=== PATIENT | male | born 1970 | race Caucasian/White ===

== ENCOUNTER 2020-06-13 11:50 | Inpatient (IN) | payer MEDICARE, SELFPAY ==
--- NOTE | 2020-06-13 | ECG_ITS ---
Test Reason : FALL Blood Pressure : / mmHG Vent. Rate : 096 BPM Atrial Rate : 096 BPM P-R Int : 148 ms QRS Dur : 090 ms QT Int : 368 ms P-R-T Axes : 038 -19 017 degrees QTc Int : 464 ms Normal sinus rhythm Normal ECG When compared with ECG of 13-JUN-2020 13:20, No significant change was found Referred By: Chelsea Quispe Electronically Signed By:MANDY HARMON
[2020-06-13 12:11] VITALS: BP 123/72; PULSE 92; RESP 18; TEMP 36.5; O2SAT 96; BMI 29.6
--- NOTE | 2020-06-13 12:30 | ECG_ITS ---
Test Reason : FALL Blood Pressure : / mmHG Vent. Rate : 090 BPM Atrial Rate : 090 BPM P-R Int : 146 ms QRS Dur : 090 ms QT Int : 386 ms P-R-T Axes : 047 -21 001 degrees QTc Int : 472 ms Artifact in tracing Normal sinus rhythm Cannot exclude old inferior infarct, but could be normal variant. Otherwise normal EKG When compared with ECG of 21-JAN-2020 15:30, No significant changes seen Referred By: Chelsea Quispe Electronically Signed By:MANDY HARMON
--- NOTE | 2020-06-13 12:30 | XR_ITS ---
EXAMINATION: XR CHEST CLINICAL INFORMATION: Multiple falls. COMPARISON: None TECHNIQUE: 2 views of the chest were obtained. FINDINGS: No significant abnormality is noted involving the heart, lungs, mediastinum, bony thorax or soft tissues. XR/XR chest 2V IMPRESSION: Unremarkable chest examination.
--- NOTE | 2020-06-13 12:30 | CT_ITS ---
EXAMINATION: CT HEAD WITHOUT CONTRAST CLINICAL INFORMATION: Frequent falls, head injury. COMPARISON: CT brain noncontrast 01/21/2020 TECHNIQUE: Contiguous axial imaging was performed from the skull base to vertex without intravenous administration of contrast. Additional 2-D coronal and sagittal reformatted images are generated on the CT workstation and uploaded to PACS. This CT examination was performed using dose optimization techniques as appropriate, variously including the following: *Automated exposure control *Adjustment of mA and/or kV according to patient size (this includes techniques or standardized protocols for targeted exams where dose is matched to indication/reason for exam; i.e. extremities or head) *Use of iterative reconstruction technique DLP: 621 mGy-cm FINDINGS: There is no intracranial hemorrhage, hematoma, or extra-axial fluid collection. The ventricles are similar to prior study. No interval hydrocephalus. Again, there is some scattered periventricular white matter gliosis greatest adjacent to frontal horns similar to prior study. There is of the cortical sulci and fissures. There is no visible acute territorial infarct or mass lesion. The calvarium appears intact. There is no pneumocephalus or orbital emphysema. The visualized sinuses and middle ears and mastoid air cells show no significant mucosal thickening. There are no air-fluid levels. CT/CT head/brain wo con IMPRESSION: No acute intracranial abnormality.
--- NOTE | 2020-06-13 12:35 | ED.GENADULT ---
HPI - General Adult General Chief complaint: Fall <DOMINGO Gay Last Filed: 06/13/20 16:34> Stated complaint: INCREASED WEAKNESS,MS EXACERBATION <DOMINGO Gay Last Filed: 06/13/20 16:34> Time Seen by Provider: 06/13/20 12:11 <DOMINGO Gay Last Filed: 06/13/20 16:34> Source: patient and EMS <DOMINGO Gay Last Filed: 06/13/20 16:34> Mode of arrival: EMS <DOMINGO Gay Last Filed: 06/13/20 16:34> Limitations: no limitations <DOMINGO Gay Last Filed: 06/13/20 16:34> History of Present Illness HPI narrative: 49yoM c PMHx of Multiple sclerosis, seizure d/o, alcohol dependent, depression and anxiety presenting to the ED via EMS due to MS flare up due to multiple falls c generalized weakness that started yesterday morning when he woke up he fell off his bed onto his left side hit his head [id number] no LOC. Denies being on any blood thinners. Denies any headaches, dizziness, changes in vision, nausea/vomiting, sore throat, runny nose, cough, shortness of breath, chest pain, shortness of breath, dyspnea on exertion, orthopnea, palpitations, focal weakness, paresthesias, abdominal pain, back pain, dysuria, diarrhea or constipation. Denies any other symptoms complaints or concerns at this time. Interested in short-term rehab. <DOMINGO Gay Last Filed: 06/13/20 16:34> Related Data Home medications: Home Medications Medication Instructions Recorded Confirmed amitriptyline 150 mg PO BEDTIME 06/13/20 06/13/20 ergocalciferol (vitamin D2) 1,250 mcg PO QWEEK 06/13/20 06/13/20 [Vitamin D2] primidone 50 mg PO BID 06/13/20 06/13/20 <DOMINGO Gay Last Filed: 06/13/20 16:34> Allergies/adverse reactions: Allergies Allergy/AdvReac Type Severity Reaction Status Date / Time clarithromycin [From BIAXIN] Allergy Unknown UNKNOWN Verified 06/13/20 19:32 glatiramer (copolymer 1) Allergy Unknown UNKNOWN Verified 06/13/20 19:32 [From COPAXONE] interferon beta-1b Allergy Unknown UNKNOWN Verified 06/13/20 19:32 [From BETASERON] omeprazole [From PRILOSEC] Allergy Unknown UNKNOWN Verified 06/13/20 19:32 <DOMINGO Gay - Last Filed: 06/13/20 16:34> Review of Systems Review of Systems: Constitutional : + multiple falls, No Fever, No Chills, No Night Sweats, No Fatigue, No Malaise ENT/Mouth : No Ear Pain, No Nasal Congestion, No Sinus Pain, No sore throat, No Rhinorrhea Eyes: No Eye Pain, No Swelling, No Redness, No Foreign Body, No Discharge, No Vision Changes Cardiovascular : No Chest Pain, No SOB, No Dyspnea on Exertion, No Orthopnea, No Palpitations Respiratory : No Cough, No Sputum, No Wheezing, No Dyspnea Gastrointestinal : No Nausea, No Vomiting, No Diarrhea, No Constipation, No abdominal Pain, No Hematochezia, No Melena Genitourinary : No Dysuria, No Urinary Frequency, No Urinary Incontinence, No Urgency, No Flank Pain Musculoskeletal : No joint pain, No Myalgias Skin : No lacerations Neuro : + Generalized weakness, + Head injury, No Numbness, No Paresthesias, No Loss of Consciousness, No Dizziness, No Headache <DOMINGO Gay - Last Filed: 06/13/20 16:34> Yes all other systems are reviewed and are negative <DOMINGO Gay - Last Filed: 06/13/20 16:34> [facility] Past Medical History Attestation statement: The following information was validated with the patient. <DOMINGO Gay - Last Filed: 06/13/20 16:34> Medical History: Medical History Alcohol dependence Multiple sclerosis <DOMINGO Gay - Last Filed: 06/13/20 16:34> Social History Social History: Social History Household Members: None Housing: Apartment Do you presently have visiting nurse or other home services: No Smoking Status: Former smoker Tobacco Type: Cigarette Cigarettes Per Day: 20 Smoked in Last 30 Days: Yes Patient Interested in Nicotine Replacement: No Patient Given Instructions on How to Stop Smoking: No Second Hand Smoke Exposure: No Use of substances other than those prescribed or required for medical reasons: No Currently Displaying Signs/Symptoms of Drug Intoxication Withdrawal: No Any prior treatment program specific to substance use: No Have you been hit, kicked, punched, or otherwise hurt by someone within the past year? If so, by whom?: No Do you feel safe in your current relationship?: No Is there a partner from a previous relationship who is making you feel unsafe now?: No Are you made to feel afraid or neglected: No Advance Directives: No Advance Directives Information Provided: Yes Do you have thoughts of harming others: None Do you have a plan to hurt others: No Plan Recently lost weight without trying: No service: No Current occupational status: disabled <DOMINGO Gay - Last Filed: 06/13/20 16:34> Physical Exam Vital Signs: Vital Signs: Last Vital Signs Temp 97.0 F 06/19/20 12:00 Pulse 80 06/19/20 12:00 Resp 16 06/19/20 12:00 BP 121/74 06/19/20 12:00 Pulse Ox 96 06/19/20 12:00 Body Mass Index 29.6 Vital signs have been reviewed as normal and appeared to be correct. Blood pressure normal. Heart rate normal. Respiration rate normal. Temperature normal. Oxygen saturation normal. <DOMINGO Gay - Last Filed: 06/13/20 16:34> Vital Signs: Last Vital Signs Temp 97.0 F 06/19/20 12:00 Pulse 80 06/19/20 12:00 Resp 16 06/19/20 12:00 BP 121/74 06/19/20 12:00 Pulse Ox 96 06/19/20 12:00 Body Mass Index 29.6 <Geovany Mathur MD - Last Filed: 06/21/20 08:39> Appearance: Alert. Oriented X3. Poor grooming/hygiene. No acute distress. Head: Normal external exam. Normocephalic. Atraumatic. Able to rotate head bilaterally. Eyes: PERRLA. EOMI. No nystagmus noted. Conjunctiva and sclera normal. Eyelids normal. Corneal reflex normal. ENT: EAC normal. TM's Normal. No septal hematoma noted. No hemotympanum noted. Hearing normal. Pharynx normal. Uvula midline. tongue midline. Moist mucous membranes. No trismus noted. No drooling noted. No muffled voice noted. Neck: Normal inspection. Neck supple. FROM. No adenopathy. Thyroid Normal. No meningeal signs. No neck mass noted. CVS: Normal heart rate and rhythm. Heart sound normal. No murmurs noted. Pulses normal throughout. Respiratory: No respiratory distress. Painless inspiration. Breath sounds normal. No wheezes/rales/rhonchi noted. Chest nontender. No accessory muscle usage noted or decreased air movement noted. Abdomen: Soft and nontender. Bowel sounds normal in all 4 quadrants. No distention noted. No organomegaly noted. No visible injury noted. Back: No CVA tenderness. Full range of motion noted. Skin: Skin warm and dry. Normal skin color. Normal skin turgor. No rashes/lesions/lacerations noted. Extremities: No lower extremity edema. No calf tenderness noted. Extremities exhibit normal range of motion. Extremities nontender. Able to shrug shoulders bilaterally and keep up against resistance. Neuro: Oriented X 3. No motor deficit. No sensory deficit. Reflexes normal. Moving all extremities. No focal motor deficits. Cranial nerves II-XI intact bilaterally. Facial strength normal. Normal cognition. Speech normal. Gait normal. Strength 5/5 throughout. No pronator drift. No tremor noted. No fasciculations noted. Muscle tone normal throughout. No asterixis noted. [id number] test normal. Heel to connor test normal. No rigidity noted. NIHSS score 0. <DOMINGO Gay - Last Filed: 06/13/20 16:34> Course Course Course Narrative: 12:30 - 49yoM c PMHx of Multiple sclerosis, seizure d/o, alcohol dependent, depression and anxiety presenting to the ED via EMS due to MS flare up due to multiple falls c generalized weakness c head injury no LOC that started yesterday morning interested in Short term rehab. Reports that he has not taking his Tysabri x 3 months - Plan: Labs, CXR, CT scan of brain/cervical spine, EKG, Drug urine screen place a case management consult, PT consult, consult with Dr. Farias patient's neurologist and re-evaluate. <DOMINGO Gay - Last Filed: 06/13/20 16:34> I have discussed the case and management with the OFELIA <Geovany Mathur MD - Last Filed: 06/21/20 08:39> Reevaluation(s) Reevaluation #1: - All labs WNL. EKG NSr no acute ischemic changes noted. CT scan of brain/cervical spine WNL no acute processes noted. CXR WNL. COVID/RSV/FLU neg - I consulted with Dr. Farias who recommended placing the patient on a short-term course of methylprednisolone of 1000 mg daily for 5 days and admit the patient. He also recommended a non emergent MRI with and without contrast to rule out PML. Will plan to admit at this time for multiple sclerosis flare for IV steroids. Patient understands agrees the plan. <DOMINGO Gay - Last Filed: 06/13/20 16:34> Time: 14:27 <DOMINGO Gay - Last Filed: 06/13/20 16:34> Medical Decision Making Lab Data Result diagrams: : 06/14/20 05:53 06/14/20 05:53 <DOMINGO Gay - Last Filed: 06/13/20 16:34> Labs: Lab Results 06/13/20 06/13/20 06/13/20 Range/Units 13:06 13:06 13:06 WBC 8.1 (4.8-10.8) X10*3/uL RBC 5.87 H (4.60-5.80) X10*6/uL Hgb 15.8 (14.0-18.0) g/dl Hct 48.1 (42-52) % MCV 81.9 (80-98) fL MCH 26.9 L (27.0-33.0) pg MCHC 32.8 (31.0-36.0) g/dl RDW 15.2 (11.0-16.0) % Plt Count 278 (160-400) X10*3/uL MPV 10.5 (9.4-12.4) fL Immature Gran % (Auto) 0.2 (0.0-0.4) % Neut % (Auto) 69.5 (45-73) % Lymph % (Auto) 24.1 (20-40) % [place] % (Auto) 5.7 (2-11) % Eos % (Auto) 0.0 (0-4) % Baso % (Auto) 0.5 (0-2) % Lymph # (Auto) 2.0 (1.2-4.9) X10*3/uL [place] # (Auto) 0.5 (0.1-1.2) X10*3/uL Eos # (Auto) 0.0 (0.0-0.4) X10*3/uL Baso # (Auto) 0.0 (0.0-0.2) X10*3/uL Abs Immat Gran (auto) 0.02 (0.00-0.03) X10*3/uL Absolute Neuts (auto) 5.6 (2.0-8.3) X10*3/uL Absolute Nucleated RBC 0.000 (0.0-0.012) X10*3/uL Nucleated RBC % (auto) 0.0 (0.0-0.2) /100WBC PT 11.8 (10.8-13.0) SEC INR 1.0 (0.9-1.1) Sodium 139 (135-145) mmol/L Potassium 4.4 (3.3-5.1) mmol/l Chloride 100 (96-108) mmol/L Carbon Dioxide 29 (22-29) mmol/L Anion Gap 14 (12-20) BUN 11 (9-16) mg/dL Creatinine 0.96 (0.5-1.4) mg/dL Estim Creat Clear Calc 95.2 Estimated GFR > 60 Random Glucose 88 (60-115) mg/dL Calcium 9.2 (8.4-10.2) mg/dL Magnesium 2.2 (1.6-2.6) mg/dL Total Bilirubin 0.6 (0.0-1.0) mg/dL Direct Bilirubin 0.2 (0.0-0.5) mg/dL AST 18 (5-37) U/L ALT 27 (0-40) U/L Alkaline Phosphatase 96 (39-117) U/L Troponin I High Sens (<3.5-35.0) ng/L B-Natriuretic Peptide (<100) pg/mL Total Protein 7.1 (6.5-8.0) g/dL Albumin 4.4 (3.5-5.0) g/dL Ethyl Alcohol mg/dL Coronavirus (PCR) (Negative) Influenza Type A (PCR) (Negative) Influenza Type B (PCR) (Negative) RSV RNA Qual (PCR) (Negative) 06/13/20 06/13/20 06/13/20 Range/Units 13:06 13:06 13:06 WBC (4.8-10.8) X10*3/uL RBC (4.60-5.80) X10*6/uL Hgb (14.0-18.0) g/dl Hct (42-52) % MCV (80-98) fL MCH (27.0-33.0) pg MCHC (31.0-36.0) g/dl RDW (11.0-16.0) % Plt Count (160-400) X10*3/uL MPV (9.4-12.4) fL Immature Gran % (Auto) (0.0-0.4) % Neut % (Auto) (45-73) % Lymph % (Auto) (20-40) % [place] % (Auto) (2-11) % Eos % (Auto) (0-4) % Baso % (Auto) (0-2) % Lymph # (Auto) (1.2-4.9) X10*3/uL [place] # (Auto) (0.1-1.2) X10*3/uL Eos # (Auto) (0.0-0.4) X10*3/uL Baso # (Auto) (0.0-0.2) X10*3/uL Abs Immat Gran (auto) (0.00-0.03) X10*3/uL Absolute Neuts (auto) (2.0-8.3) X10*3/uL Absolute Nucleated RBC (0.0-0.012) X10*3/uL Nucleated RBC % (auto) (0.0-0.2) /100WBC PT (10.8-13.0) SEC INR (0.9-1.1) Sodium (135-145) mmol/L Potassium (3.3-5.1) mmol/l Chloride (96-108) mmol/L Carbon Dioxide (22-29) mmol/L Anion Gap (12-20) BUN (9-16) mg/dL Creatinine (0.5-1.4) mg/dL Estim Creat Clear Calc Estimated GFR Random Glucose (60-115) mg/dL Calcium (8.4-10.2) mg/dL Magnesium (1.6-2.6) mg/dL Total Bilirubin (0.0-1.0) mg/dL Direct Bilirubin (0.0-0.5) mg/dL AST (5-37) U/L ALT (0-40) U/L Alkaline Phosphatase (39-117) U/L Troponin I High Sens < 3.5 (<3.5-35.0) ng/L B-Natriuretic Peptide 15 Cancelled (<100) pg/mL Total Protein (6.5-8.0) g/dL Albumin (3.5-5.0) g/dL Ethyl Alcohol mg/dL Coronavirus (PCR) NEGATIVE (Negative) Influenza Type A (PCR) NEGATIVE (Negative) Influenza Type B (PCR) NEGATIVE (Negative) RSV RNA Qual (PCR) NEGATIVE (Negative) 06/13/20 Range/Units 13:06 WBC (4.8-10.8) X10*3/uL RBC (4.60-5.80) X10*6/uL Hgb (14.0-18.0) g/dl Hct (42-52) % MCV (80-98) fL MCH (27.0-33.0) pg MCHC (31.0-36.0) g/dl RDW (11.0-16.0) % Plt Count (160-400) X10*3/uL MPV (9.4-12.4) fL Immature Gran % (Auto) (0.0-0.4) % Neut % (Auto) (45-73) % Lymph % (Auto) (20-40) % [place] % (Auto) (2-11) % Eos % (Auto) (0-4) % Baso % (Auto) (0-2) % Lymph # (Auto) (1.2-4.9) X10*3/uL [place] # (Auto) (0.1-1.2) X10*3/uL Eos # (Auto) (0.0-0.4) X10*3/uL Baso # (Auto) (0.0-0.2) X10*3/uL Abs Immat Gran (auto) (0.00-0.03) X10*3/uL Absolute Neuts (auto) (2.0-8.3) X10*3/uL Absolute Nucleated RBC (0.0-0.012) X10*3/uL Nucleated RBC % (auto) (0.0-0.2) /100WBC PT (10.8-13.0) SEC INR (0.9-1.1) Sodium (135-145) mmol/L Potassium (3.3-5.1) mmol/l Chloride (96-108) mmol/L Carbon Dioxide (22-29) mmol/L Anion Gap (12-20) BUN (9-16) mg/dL Creatinine (0.5-1.4) mg/dL Estim Creat Clear Calc Estimated GFR Random Glucose (60-115) mg/dL Calcium (8.4-10.2) mg/dL Magnesium (1.6-2.6) mg/dL Total Bilirubin (0.0-1.0) mg/dL Direct Bilirubin (0.0-0.5) mg/dL AST (5-37) U/L ALT (0-40) U/L Alkaline Phosphatase (39-117) U/L Troponin I High Sens (<3.5-35.0) ng/L B-Natriuretic Peptide (<100) pg/mL Total Protein (6.5-8.0) g/dL Albumin (3.5-5.0) g/dL Ethyl Alcohol < 10 mg/dL Coronavirus (PCR) (Negative) Influenza Type A (PCR) (Negative) Influenza Type B (PCR) (Negative) RSV RNA Qual (PCR) (Negative) <DOMINGO Gay - Last Filed: 06/13/20 16:34> Lab Results 06/13/20 06/13/20 06/13/20 Range/Units 13:06 13:06 13:06 WBC 8.1 (4.8-10.8) X10*3/uL RBC 5.87 H (4.60-5.80) X10*6/uL Hgb 15.8 (14.0-18.0) g/dl Hct 48.1 (42-52) % MCV 81.9 (80-98) fL MCH 26.9 L (27.0-33.0) pg MCHC 32.8 (31.0-36.0) g/dl RDW 15.2 (11.0-16.0) % Plt Count 278 (160-400) X10*3/uL MPV 10.5 (9.4-12.4) fL Immature Gran % (Auto) 0.2 (0.0-0.4) % Neut % (Auto) 69.5 (45-73) % Lymph % (Auto) 24.1 (20-40) % [place] % (Auto) 5.7 (2-11) % Eos % (Auto) 0.0 (0-4) % Baso % (Auto) 0.5 (0-2) % Lymph # (Auto) 2.0 (1.2-4.9) X10*3/uL [place] # (Auto) 0.5 (0.1-1.2) X10*3/uL Eos # (Auto) 0.0 (0.0-0.4) X10*3/uL Baso # (Auto) 0.0 (0.0-0.2) X10*3/uL Abs Immat Gran (auto) 0.02 (0.00-0.03) X10*3/uL Absolute Neuts (auto) 5.6 (2.0-8.3) X10*3/uL Absolute Nucleated RBC 0.000 (0.0-0.012) X10*3/uL Nucleated RBC % (auto) 0.0 (0.0-0.2) /100WBC PT 11.8 (10.8-13.0) SEC INR 1.0 (0.9-1.1) Sodium 139 (135-145) mmol/L Potassium 4.4 (3.3-5.1) mmol/l Chloride 100 (96-108) mmol/L Carbon Dioxide 29 (22-29) mmol/L Anion Gap 14 (12-20) BUN 11 (9-16) mg/dL Creatinine 0.96 (0.5-1.4) mg/dL Estim Creat Clear Calc 95.2 Estimated GFR > 60 Random Glucose 88 (60-115) mg/dL Calcium 9.2 (8.4-10.2) mg/dL Magnesium 2.2 (1.6-2.6) mg/dL Total Bilirubin 0.6 (0.0-1.0) mg/dL Direct Bilirubin 0.2 (0.0-0.5) mg/dL AST 18 (5-37) U/L ALT 27 (0-40) U/L Alkaline Phosphatase 96 (39-117) U/L Troponin I High Sens (<3.5-35.0) ng/L B-Natriuretic Peptide (<100) pg/mL Total Protein 7.1 (6.5-8.0) g/dL Albumin 4.4 (3.5-5.0) g/dL Ethyl Alcohol mg/dL Coronavirus (PCR) (Negative) Influenza Type A (PCR) (Negative) Influenza Type B (PCR) (Negative) RSV RNA Qual (PCR) (Negative) 06/13/20 06/13/20 06/13/20 Range/Units 13:06 13:06 13:06 WBC (4.8-10.8) X10*3/uL RBC (4.60-5.80) X10*6/uL Hgb (14.0-18.0) g/dl Hct (42-52) % MCV (80-98) fL MCH (27.0-33.0) pg MCHC (31.0-36.0) g/dl RDW (11.0-16.0) % Plt Count (160-400) X10*3/uL MPV (9.4-12.4) fL Immature Gran % (Auto) (0.0-0.4) % Neut % (Auto) (45-73) % Lymph % (Auto) (20-40) % [place] % (Auto) (2-11) % Eos % (Auto) (0-4) % Baso % (Auto) (0-2) % Lymph # (Auto) (1.2-4.9) X10*3/uL [place] # (Auto) (0.1-1.2) X10*3/uL Eos # (Auto) (0.0-0.4) X10*3/uL Baso # (Auto) (0.0-0.2) X10*3/uL Abs Immat Gran (auto) (0.00-0.03) X10*3/uL Absolute Neuts (auto) (2.0-8.3) X10*3/uL Absolute Nucleated RBC (0.0-0.012) X10*3/uL Nucleated RBC % (auto) (0.0-0.2) /100WBC PT (10.8-13.0) SEC INR (0.9-1.1) Sodium (135-145) mmol/L Potassium (3.3-5.1) mmol/l Chloride (96-108) mmol/L Carbon Dioxide (22-29) mmol/L Anion Gap (12-20) BUN (9-16) mg/dL Creatinine (0.5-1.4) mg/dL Estim Creat Clear Calc Estimated GFR Random Glucose (60-115) mg/dL Calcium (8.4-10.2) mg/dL Magnesium (1.6-2.6) mg/dL Total Bilirubin (0.0-1.0) mg/dL Direct Bilirubin (0.0-0.5) mg/dL AST (5-37) U/L ALT (0-40) U/L Alkaline Phosphatase (39-117) U/L Troponin I High Sens < 3.5 (<3.5-35.0) ng/L B-Natriuretic Peptide 15 Cancelled (<100) pg/mL Total Protein (6.5-8.0) g/dL Albumin (3.5-5.0) g/dL Ethyl Alcohol mg/dL Coronavirus (PCR) NEGATIVE (Negative) Influenza Type A (PCR) NEGATIVE (Negative) Influenza Type B (PCR) NEGATIVE (Negative) RSV RNA Qual (PCR) NEGATIVE (Negative) 06/13/20 Range/Units 13:06 WBC (4.8-10.8) X10*3/uL RBC (4.60-5.80) X10*6/uL Hgb (14.0-18.0) g/dl Hct (42-52) % MCV (80-98) fL MCH (27.0-33.0) pg MCHC (31.0-36.0) g/dl RDW (11.0-16.0) % Plt Count (160-400) X10*3/uL MPV (9.4-12.4) fL Immature Gran % (Auto) (0.0-0.4) % Neut % (Auto) (45-73) % Lymph % (Auto) (20-40) % [place] % (Auto) (2-11) % Eos % (Auto) (0-4) % Baso % (Auto) (0-2) % Lymph # (Auto) (1.2-4.9) X10*3/uL [place] # (Auto) (0.1-1.2) X10*3/uL Eos # (Auto) (0.0-0.4) X10*3/uL Baso # (Auto) (0.0-0.2) X10*3/uL Abs Immat Gran (auto) (0.00-0.03) X10*3/uL Absolute Neuts (auto) (2.0-8.3) X10*3/uL Absolute Nucleated RBC (0.0-0.012) X10*3/uL Nucleated RBC % (auto) (0.0-0.2) /100WBC PT (10.8-13.0) SEC INR (0.9-1.1) Sodium (135-145) mmol/L Potassium (3.3-5.1) mmol/l Chloride (96-108) mmol/L Carbon Dioxide (22-29) mmol/L Anion Gap (12-20) BUN (9-16) mg/dL Creatinine (0.5-1.4) mg/dL Estim Creat Clear Calc Estimated GFR Random Glucose (60-115) mg/dL Calcium (8.4-10.2) mg/dL Magnesium (1.6-2.6) mg/dL Total Bilirubin (0.0-1.0) mg/dL Direct Bilirubin (0.0-0.5) mg/dL AST (5-37) U/L ALT (0-40) U/L Alkaline Phosphatase (39-117) U/L Troponin I High Sens (<3.5-35.0) ng/L B-Natriuretic Peptide (<100) pg/mL Total Protein (6.5-8.0) g/dL Albumin (3.5-5.0) g/dL Ethyl Alcohol < 10 mg/dL Coronavirus (PCR) (Negative) Influenza Type A (PCR) (Negative) Influenza Type B (PCR) (Negative) RSV RNA Qual (PCR) (Negative) <Geovany Mathur MD - Last Filed: 06/21/20 08:39> Imaging Data Chest x-ray: Attestation: I personally reviewed and interpreted this imaging study as follows: <DOMINGO Gay - Last Filed: 06/13/20 16:34> Radiologist's impression: FINDINGS: No significant abnormality is noted involving the heart, lungs, mediastinum, bony thorax or soft tissues. XR/XR chest 2V IMPRESSION: Unremarkable chest examination. <DOMINGO Gay Last Filed: 06/13/20 16:34> CT scan of brain/cervical spine: Attestation: I personally reviewed and interpreted this imaging study as follows: <DOMINGO Gay - Last Filed: 06/13/20 16:34> Radiologist's impression: FINDINGS: There is no intracranial hemorrhage, hematoma, or extra-axial fluid collection. The ventricles are similar to prior study. No interval hydrocephalus. Again, there is some scattered periventricular white matter gliosis greatest adjacent to frontal horns similar to prior study. There is of the cortical sulci and fissures. There is no visible acute territorial infarct or mass lesion. The calvarium appears intact. There is no pneumocephalus or orbital emphysema. The visualized sinuses and middle ears and mastoid air cells show no significant mucosal thickening. There are no air-fluid levels. CT/CT head/brain wo con IMPRESSION: No acute intracranial abnormality. <DOMINGO Gay - Last Filed: 06/13/20 16:34> ECG Data Attestation: I personally reviewed and interpreted this ECG as follows: <DOMINGO Gay Last Filed: 06/13/20 16:34> Interpretation: Normal sinus rhythm with a ventricular rate of 96 with a normal OR interval normal QRS duration normal QT/QTC interval. No acute ischemic changes noted. Similar compared to prior EKG on 01/21/2020. <DOMINGO Gay Last Filed: 06/13/20 16:34> Critical Care Time Critical Care Time Critical Care Time: Yes <DOMINGO Gay Last Filed: 06/13/20 16:34> Total Critical Care Time: 60 <DOMINGO Gay - Last Filed: 06/13/20 16:34> Attestation: I personally attest to this time spent taking care of the patient <DOMINGO Gay - Last Filed: 06/13/20 16:34> Discharge Plan Discharge Clinical Impression: Generalized weakness, Multiple falls, Multiple sclerosis exacerbation <DOMINGO Gay - Last Filed: 06/13/20 16:34> Patient Disposition: Admitted As Inpatient <DOMINGO Gay - Last Filed: 06/13/20 16:34> Interventions: Admission Worksheet (ED) Last Done: 06/14/20 09:55 <DOMINGO Gay - Last Filed: 06/13/20 16:34> Discharge Date/Time: 06/14/20 09:59 <DOMINGO Gay - Last Filed: 06/13/20 16:34>
--- NOTE | 2020-06-13 12:39 | CT_ITS ---
EXAMINATION: CT CERVICAL SPINE WITHOUT CONTRAST CLINICAL INFORMATION: Frequent falls COMPARISON: Previous exam December 2019 TECHNIQUE: Axial images through the cervical spine without contrast. Sagittal and coronal reconstructions on the technologist workstation were performed. This CT examination was performed using dose optimization techniques as appropriate, variously including the following: *Automated exposure control *Adjustment of mA and/or kV according to patient size (this includes techniques or standardized protocols for targeted exams where dose is matched to indication/reason for exam; i.e. extremities or head) *Use of iterative reconstruction technique DLP: 518 mGy-cm FINDINGS: Bone alignment is normal. No fracture or dislocation is seen. There is mild degenerative spondylosis from C3-C4-C5 to C6-C7. There is mild disc space narrowing at C6-C7. Prevertebral soft tissues are normal. There is shotty cervical lymphadenopathy. Visualized lung apices are clear. CT/CT cervical spine wo con IMPRESSION: Mild degenerative changes. No fracture or dislocation seen.
[2020-06-13 13:12] LABS: MANUAL DIFF FLAG NO
[2020-06-13 13:17] LABS: Basophils Percent Auto 0.5 % (0-2); Hematocrit 48.1 % (42-52); Hemoglobin 15.8 g/dl (14.0-18.0); Imm Gran Abs Auto 0.02 X10*3/uL (0.00-0.03); Imm Gran Pct Auto 0.2 % (0.0-0.4); Lymphocytes Percent Auto 24.1 % (20-40); Mean Corpuscular HGB Conc 32.8 g/dl (31.0-36.0); Mean Corpuscular Hemoglobin 26.9 pg (27.0-33.0); Mean Corpuscular Volume 81.9 fL (80-98); Mean Platelet Volume 10.5 fL (9.4-12.4); Monocytes Absolute Auto 0.5 X10*3/uL (0.1-1.2); Monocytes Percent Auto 5.7 % (2-11); Neutrophils Absolute Auto 5.6 X10*3/uL (2.0-8.3); Neutrophils Percent Auto 69.5 % (45-73); Platelet Count 278 X10*3/uL (160-400); Red Blood Count 5.87 X10*6/uL (4.60-5.80); Red Cell Distribution Width 15.2 % (11.0-16.0); White Blood Count 8.1 X10*3/uL (4.8-10.8)
[2020-06-13 13:20] LABS: Prothrombin Time 11.8 SEC (10.8-13.0)
[2020-06-13 13:48] LABS: Alanine Aminotransferase 27 U/L (0-40); Albumin Level 4.4 g/dL (3.5-5.0); Alkaline Phosphatase 96 U/L (39-117); Anion Gap 14 (12-20); Aspartate Amino Transferase 18 U/L (5-37); Bilirubin Direct 0.2 mg/dL (0.0-0.5); Bilirubin Total 0.6 mg/dL (0.0-1.0); Blood Urea Nitrogen 11 mg/dL (9-16); Calcium 9.2 mg/dL (8.4-10.2); Carbon Dioxide 29 mmol/L (22-29); Chloride 100 mmol/L (96-108); Creatinine Clr Calc Pharmacy 95.2; Estimated Glomerular Filt Rate > 60; Glucose Random 88 mg/dL (60-115); Magnesium 2.2 mg/dL (1.6-2.6); Potassium 4.4 mmol/l (3.3-5.1); Sodium 139 mmol/L (135-145); Total Protein 7.1 g/dL (6.5-8.0)
[2020-06-13 13:52] LABS: Influenza A PCR NEGATIVE (Negative); Influenza B PCR NEGATIVE (Negative); Resp Syncy Virus RNA Qual PCR NEGATIVE (Negative); SARS COV2 PCR INHOUSE NEGATIVE (Negative)
[2020-06-13 13:53] LABS: Ethanol < 10 mg/dL
[2020-06-13 13:56] LABS: B Type Natriuretic Peptide 15 pg/mL (<100); Troponin-I High Sensitivity < 3.5 ng/L (<3.5-35.0)
--- NOTE | 2020-06-13 14:10 | PC.NURSE ---
PHYSICAL THERAPIST HERE TO SEE PATIENT.
[2020-06-13 14:11] VITALS: BP 123/72; PULSE 92; O2SAT 96
--- NOTE | 2020-06-13 15:35 | MHC.CM.ED ---
Received case management consult from DOMINGO Tran. Patient came to ER due to weakness. Has a history of MS. Attempted to meet with patient. Nursing care currently being provided. Spoke with patient's daughter Yeimi. Patient has been c/o increased weakness, increased depression symptions and poor vision in both eyes. Patient has been to [facility] and [facility] in the past. Yeimi is agreeable to referrals to these facilities. Continue to monitor for d/c needs.
[2020-06-13 18:00] VITALS: BP 103/65; PULSE 86; RESP 17; TEMP 37.1; O2SAT 98
--- NOTE | 2020-06-13 18:09 | P.EN_ITS ---
Event Note Date of Service: 06/13/20 Event Note: Patient seen examined case discussed with APC 49-year-old gentleman with past medical history of multiple sclerosis seizure disorder history of alcohol abuse presented to [facility] due to multiple falls and unsteady gait patient denied any other weakness numbness no head injury or loss of consciousness he denies any recent bout of URI symptoms no nausea, no vomiting, no urinary symptoms, no shortness of breath CT brain negative Labs unremarkable On examination patient resting comfortably no acute distress Unsteady gait and fall with history of MS likely patient has flare of multiple sclerosis will place patient on methylprednisolone 1000 mg daily for 5 days , obtain MRI and neuro consultation Continue close neuro follow up
--- NOTE | 2020-06-13 18:51 | PC.NURSE ---
PT HAS A #22 IN LEFT HAND STARTED PRIOR TO THIS NURSE. SITE INTACT AND FLUSHES W/O PROBLEMS.
[2020-06-13 19:48] VITALS: BP 116/77; PULSE 88; RESP 16; TEMP 36.4; O2SAT 93
[2020-06-13] MEDS: Heparin Sodium,Porcine 5,000 UNIT/ML VIAL 5000 UNIT SUBCUT (19:57)
[2020-06-13] MEDS: Primidone 50 MG TABLET PO (22:39)
[2020-06-13] MEDS: Amitriptyline HCl 50 MG TABLET 150 MG PO (22:39)
[2020-06-13 22:47] VITALS: BP 122/78; PULSE 90; RESP 17; O2SAT 95
[2020-06-14] MEDS: 0.9 % Sodium Chloride Flush 3 ML SYRINGE IVFLUSH ×3 (00:54→16:21)
[2020-06-14 05:59] LABS: Basophils Percent Auto 0.1 % (0-2); Hematocrit 46.8 % (42-52); Hemoglobin 15.5 g/dl (14.0-18.0); Imm Gran Abs Auto 0.04 X10*3/uL (0.00-0.03); Imm Gran Pct Auto 0.6 % (0.0-0.4); Lymphocytes Absolute Auto 1.1 X10*3/uL (1.2-4.9); MANUAL DIFF FLAG NO; Mean Corpuscular HGB Conc 33.1 g/dl (31.0-36.0); Mean Corpuscular Volume 81.4 fL (80-98); Mean Platelet Volume 10.5 fL (9.4-12.4); Monocytes Percent Auto 0.4 % (2-11); Neutrophils Absolute Auto 6.1 X10*3/uL (2.0-8.3); Neutrophils Percent Auto 83.9 % (45-73); Platelet Count 285 X10*3/uL (160-400); Red Blood Count 5.75 X10*6/uL (4.60-5.80); White Blood Count 7.3 X10*3/uL (4.8-10.8)
[2020-06-14 06:31] LABS: Anion Gap 12 (12-20); Blood Urea Nitrogen 15 mg/dL (9-16); Calcium 9.4 mg/dL (8.4-10.2); Carbon Dioxide 27 mmol/L (22-29); Chloride 103 mmol/L (96-108); Creatinine Clr Calc Pharmacy 101.5; Estimated Glomerular Filt Rate > 60; Glucose Random 154 mg/dL (60-115); Potassium 4.4 mmol/l (3.3-5.1); Sodium 138 mmol/L (135-145)
[2020-06-14 07:52] VITALS: BP 112/66; PULSE 105; RESP 15; TEMP 36.7; O2SAT 94
--- NOTE | 2020-06-14 07:56 | PC.NURSE ---
pt a/o x 3 no sob/dev noted skin pink warm dry speaks in full sentences. ate 100% of breakfast.
[2020-06-14] MEDS: Heparin Sodium,Porcine 5,000 UNIT/ML VIAL 5000 UNIT SUBCUT ×2 (08:18→20:55)
--- NOTE | 2020-06-14 08:32 | PC.NURSE ---
nurse to nurse given to abel (rn), pt aware of plan of care for admission to hosp.
[2020-06-14 09:37] VITALS: BP 109/72; PULSE 107; RESP 16; O2SAT 94
[2020-06-14] MEDS: Primidone 50 MG TABLET PO ×2 (09:39→20:57)
--- NOTE | 2020-06-14 09:59 | PC.NURSE ---
pt was sent to mri then to be transfered to 387.
[2020-06-14 11:10] VITALS: BP 106/65; PULSE 104; RESP 19; TEMP 36.3; O2SAT 95
--- NOTE | 2020-06-14 14:17 | P.CNNE_ITS ---
History of Present Illness Data of Consult Service Date: 06/14/20 Primary Care Provider: Jhony Campbell MD 49 years old man with remitting relapsing multiple sclerosis and history of alcohol abuse. He was initially diagnosed in [address] Blackman. He was put on Betaseron that resulted in a rash. It was changed to Copaxone that he took from few years, which ultimately was stopped because of injection site reactions. Since August of 2014 he has been on Tysabri. He came to emergency room yesterday with increasing unsteadiness and weakness with no obvious reason and was diagnosed with excessive vision of MS and was treated with steroids. This morning he was feeling better. He said that he had stopped taking Tysabri 3 months ago, stating that it was not working and not helping him. Review of Systems Review of Systems: No recent cold or flu-like illnesses or trauma. [facility] Past Medical History Medical History Alcohol dependence Multiple sclerosis Social History Social History Household Members: None Housing: Apartment Do you presently have visiting nurse or other home services: No Smoking Status: Former smoker Tobacco Type: Cigarette Cigarettes Per Day: 20 Smoked in Last 30 Days: Yes Patient Interested in Nicotine Replacement: No Patient Given Instructions on How to Stop Smoking: No Second Hand Smoke Exposure: No Use of substances other than those prescribed or required for medical reasons: No Any prior treatment program specific to substance use: No Have you been hit, kicked, punched, or otherwise hurt by someone within the past year? If so, by whom?: No Do you feel safe in your current relationship?: No Is there a partner from a previous relationship who is making you feel unsafe now?: No Are you made to feel afraid or neglected: No Advance Directives: No Advance Directives Information Provided: Yes Do you have thoughts of harming others: None Do you have a plan to hurt others: No Plan Recently lost weight without trying: No Meds Allergies Allergy/AdvReac Type Severity Reaction Status Date / Time clarithromycin [From BIAXIN] Allergy Unknown UNKNOWN Verified 06/13/20 19:32 glatiramer (copolymer 1) Allergy Unknown UNKNOWN Verified 06/13/20 19:32 [From COPAXONE] interferon beta-1b Allergy Unknown UNKNOWN Verified 06/13/20 19:32 [From BETASERON] omeprazole [From PRILOSEC] Allergy Unknown UNKNOWN Verified 06/13/20 19:32 Home Medications Medication Instructions Recorded Confirmed Type amitriptyline 150 mg PO BEDTIME 06/13/20 06/13/20 History ergocalciferol (vitamin D2) 1,250 mcg PO QWEEK 06/13/20 06/13/20 History [Vitamin D2] natalizumab [Tysabri] 300 mg IV Q28D 06/13/20 06/13/20 History primidone 50 mg PO BID 06/13/20 06/13/20 History Physical Exam Vital Signs: Vital Signs: Last Vital Signs Temp 97.4 F 06/14/20 11:10 Pulse 104 H 06/14/20 11:10 Resp 19 06/14/20 11:10 BP 106/65 06/14/20 11:10 Pulse Ox 95 06/14/20 11:10 Body Mass Index 29.6 He was alert and awake with normal spontaneity of speech fluency comprehension and anxious affect. There was no nystagmus. Visual michaels are full. Moderate ataxia was noted in arms and legs. Deep tendon reflexes are brisk with flexor to equivocal plantars. Results Labs CBC & Chem 7: 06/14/20 05:53 06/14/20 05:53 Labs: Short CBC 06/14/20 Range/Units 05:53 WBC 7.3 (4.8-10.8) X10*3/uL Hgb 15.5 (14.0-18.0) g/dl Hct 46.8 (42-52) % Plt Count 285 (160-400) X10*3/uL BMP 06/14/20 05:53 Sodium 138 Potassium 4.4 Chloride 103 Carbon Dioxide 27 BUN 15 Creatinine 0.90 Calcium 9.4 His MRI brain revealed multiple areas of restricted diffusion and FLAIR hyperintensity suggestive of acute demyelinating lesions. Underlying there was significant demyelinating disease and moderate cerebral atrophy. Assessment and Plan (1) Multiple sclerosis exacerbation: Status: Acute 49 years old man with severe multiple sclerosis of remitting relapsing type. It was relatively stable for a number of years on Tysabri but for some reason and on his own he has. Taking this medicine. He said that it was not helping but it has helped him stabilized for many years. At this time he had multiple acute lesions and treatment with Solu-Medrol was appropriate and I would continue it for 5 days. After that we would have to make another decision to put him on an immunomodulating agent. In this regard I have might try Ocrevus of a similar drug. I also noticed that he has significant atrophy and significant demyelinating disease, which can hamper his ability to make sound judgment and can create dementia or dementia like symptoms.
--- NOTE | 2020-06-14 15:32 | MHC.CM.PN ---
IMM 06/14/20, EMR REVIEWED AND CM MET WITH PT WHO IS ALERT AND ORIENTED TO NAME, PLACE AND SITUATION, PT REPORTS HE WAS INDEPENDENT AT HOME AND DOING WELL UNITL HE STOPPED VNA WITH HOME PT AND OT ABOUT TWO MONTHS AGO, PT REPORTS THE ONLY DME HE HAS IS A WALKER WHICH HE GOT THROUGH [facility] HOWEVER IT IS BROKEN, PT DENIES ANY HOME SERVICES SUCH A GLASSWARE ENGRAVER OR HOME HEALTH AID, PT VERIFIES HIS PCP IS RUSSEL ROGERS AND IT IS UNCLEAR WHOM HE SEES DR. COWART AT [facility] FOR NEUROLOGY WHO PT REPORTS PRESCRIBES HIS MEDICATION. PT COULD NOT RECALL THE NAME OF THE VNA THAT HE PREVIOUSLY USED. PT DOES REPORT HE WANTED TO GO TO [facility] HOWEVER WHEN TOLD THEY DECLINED PT WAS OK WITH DAUGHTERS SECOND CHOICE JUMA WHO IS CURRENTLY FOLLOWING PT. HCP: PT THINKS HIS DAUGHTER IS HIS HEALTH CARE PROXY BUT IS NOT POSITIVE, PT GAVE VERBAL CONSENT TO CALL DAUGHTER. CM DID ATTEMPT TO LOOK FOR HCP IN [employer] HOWEVER WAS NOT SUCCESSFUL. DAUGHTER: MIKE KEENE [phone], CM DID CALL DAUGHTER AT APPROXIMATELY [phone] AND LEFT MESSAGE WITH CM'S CONTACT NUMBERS. PHARMACY: [facility] IN [place] PCP: RUSSEL ROGERS
[2020-06-14 15:45] VITALS: BP 118/67; PULSE 110; RESP 18; TEMP 36.4; O2SAT 97
--- NOTE | 2020-06-14 16:06 | HO.PM.IMPN ---
Subjective Subjective Date of Service: 06/14/20 Interval History: Patient feeling better this morning he has mostly bed ridden since he has unsteady gait, patient denies any new weakness numbness tingling vision loss, bowel or bladder issues. Review of Systems General no headache, no dizziness no fever chills. CVS no chest pain, no palpitation. Respiratory no cough, no shortness of breath Gastrointestinal no nausea, no vomiting, no abdominal pain Physical Exam Vital Signs: Vital Signs: Last Vital Signs Temp 97.6 F 06/14/20 15:45 Pulse 110 H 06/14/20 15:45 Resp 18 06/14/20 15:45 BP 118/67 06/14/20 15:45 Pulse Ox 97 06/14/20 15:45 Body Mass Index 29.6 Const: Other: General patient resting comfortably in no acute distress. Neck supple no JVD. CVS regular rate rhythm, Respiratory lungs clear to auscultation, no respiratory distress Gastrointestinal abdomen soft, nontender, bowel sounds audible Extremities no clubbing cyanosis or edema. Neuro normal strength both upper and lower extremities, speech clear. Skin no rash Objective Data Current Medications Generic Name Dose Route Start Last Admin Trade Name Freq PRN Reason Stop Dose Admin Acetaminophen 650 mg 06/13/20 17:08 Acetaminophen 325 Mg Tablet PO Q6H PRN Pain, Mild (Pain Scale 1-3) Amitriptyline HCl 150 mg 06/13/20 21:00 06/13/20 22:39 Amitriptyline Hcl 50 Mg Tablet PO 150 mg BEDTIME KAVIN Administration Ergocalciferol 1,250 mcg 06/19/20 09:00 Ergocalciferol (Vitamin D2) 1,250 Mcg Capsule PO Mo@0900 KAVIN Heparin Sodium (Porcine) 5,000 unit 06/13/20 20:00 06/14/20 08:18 Heparin Sodium,Porcine 5,000 Unit/Ml Vial SUBCUT 5,000 unit Q12H KAVIN Administration Methylprednisolone Sodium 116 mls @ 100 mls/hr 06/14/20 09:00 06/14/20 12:18 Succinate 1,000 mg/ Sodium IV 06/18/20 12:00 Infused Chloride DAILY KAVIN Infusion Ondansetron HCl 4 mg 06/13/20 17:08 Ondansetron Hcl 4 Mg/2 Ml Vial IVPUSH Q8H PRN Nausea and Vomiting Pharmacy Consult 1 each 06/13/20 16:11 Consult Rx Perform Med Rec MISCELLANE ONCE PRN Consult order Primidone 50 mg 06/13/20 21:00 06/14/20 09:39 Primidone 50 Mg Tablet PO 50 mg BID KAVIN Administration Sodium Chloride 3 ml 06/14/20 00:00 06/14/20 08:18 0.9 % Sodium Chloride Flush 3 Ml Syringe IVFLUSH 3 ml QSHIFT KAVIN Administration Labs CBC & Chem 7: 06/14/20 05:53 06/14/20 05:53 Assessment and Plan (1) Generalized weakness: Status: Acute (2) Multiple falls: Status: Acute (3) Multiple sclerosis exacerbation: Status: Acute (4) Alcohol dependence: Status: Acute (5) Depression: Status: Acute (6) Anxiety: Status: Acute (7) Seizures: Status: Acute (8) Multiple sclerosis: Status: Acute Assessment and Plan: 49 years old man with history of multiple sclerosis, seizure disorder, alcohol dependence depression and anxiety presented to the emergency room due to multiple falls unsteady gait and generalized weakness he denied any loss of consciousness or head injury a CT brain and cervical spine showed no acute abnormality patient was placed on IV Solu-Medrol with concern for multiple sclerosis flare. Exacerbation of multiple sclerosis. No new neuro symptoms,no numbness tingling no visual symptoms Patient has history of severe multiple sclerosis of remitting relapsing type, patient stop taking tysabri 3 months ago since he felt it was not helping. MRI today showed multiple new lesions suggestive of demyelinating disease, patient seen by Dr. Farias he recommend to continue IV Solu-Medrol for 5 days today is day 2/5 Will obtain a PT eval patient might need rehab placement patient will need to have close outpatient Neurology Neurology follow-up for immuno modulating agent History of seizure continue seizure precaution. Continue primidone History of anxiety depression continue home medication amitriptyline DVT prophylaxis continue heparin
--- NOTE | 2020-06-14 17:45 | HP_ITS ---
DATE OF SERVICE: 06/13/2020 CHIEF COMPLAINT: Falls. HISTORY OF PRESENT ILLNESS: A 49-year-old man with a history of MS, presents with complaints of multiple falls over the last 4 days. He reports feeling generalized weakness. He denied any headache, visual changes, nausea, vomiting, diarrhea, chest pain, shortness of breath, cold symptoms, recent travel or sick contacts. He does not have any focal weakness or paresthesias. He has a previous history of alcohol dependence, which he denies and reports that he quit smoking approximately 3 months ago. Labs are all within acceptable limits. He had multiple imaging studies including cervical spine CT, head CT and chest x-ray, all negative for any acute abnormality. His vital signs have remained stable. He reports compliance to medications, however, reported that he was getting monthly injections for his MS, but stopped approximately 3 months ago because of the side effects. In the ER, he received 1 g of Solu-Medrol, Tylenol and Zofran. He will be admitted for further management and treatment of acute MS flare. PAST MEDICAL HISTORY: 1. Multiple sclerosis. 2. Alcohol abuse, denies at this time. 3. Depression. 4. Anxiety. SOCIAL HISTORY: Reports that he lives alone, did not have any help. He reports he quit smoking approximately 3 months ago. SURGICAL HISTORY: Reports none. FAMILY HISTORY: Denies any cardiac disease. ALLERGIES: TO CLARITHROMYCIN, COPAXONE, INTERFERON, OMEPRAZOLE. MEDICATIONS: Amitriptyline 150 mg p.o. at bedtime. Ergocalciferol 1250 mcg p.o. weekly. Tysabri 300 mg IV q.28 days. 50 mg p.o. b.i.d. REVIEW OF SYSTEMS: CONSTITUTIONAL: Denies recent fever, chills, or decrease in appetite. RESPIRATORY: Denies any shortness of breath, cough, or sputum production. CARDIOVASCULAR: Denies any chest pain, orthopnea, PND, or edema. GASTROINTESTINAL: Denies any dysphagia, abdominal pain, nausea, vomiting, or diarrhea. GENITOURINARY: Denies any dysuria, frequency, hematuria. MUSCULOSKELETAL: Denies any joint pain or swelling. NEUROPSYCH: Reports weakness. No seizures. All other systems are reviewed are negative. PHYSICAL EXAMINATION: CONSTITUTIONAL: Resting in bed. No acute distress. VITAL SIGNS: 98.8, 86, 17, 103/65, 98% on room air. SKIN: Intact without rashes or open sores. HEENT: Head is normocephalic, atraumatic. Eyes, pupils are PERRLA. Sclerae anicteric. Mouth and throat: Mucous membranes are intact and moist. NECK: Supple. No lymphadenopathy. No JVD noted. CHEST: Clear to auscultation without wheezes, rhonchi, or rales. HEART: Regular rate and rhythm. Clear S1, S2. No murmurs, rubs, gallops. ABDOMEN: Positive bowel sounds. NEURO: The patient is alert and oriented x3. No focal deficits noted. LABORATORY DATA: WBC 8.1, hemoglobin 15.8, hematocrit 48.1, and platelets 278. Sodium is 139, potassium 4.4, chloride is 100, BUN is 11, creatinine is 0.96. Coronavirus PCR is negative. ASSESSMENT AND PLAN: A 49-year-old man who is being admitted with acute MS flare. 1. Acute MS flare. We will treat with 1 g of methylprednisolone for 5 days, Neuro to follow, MRI with and without contrast. Physical therapy evaluation. Continue amitriptyline and primidone. 2. Deep vein thrombosis prophylaxis with heparin. 3. Case discussed with Dr. Capone. 4. Full code. DESMOND Dixon MD JR/MABEL / [id number]
--- NOTE | 2020-06-14 18:13 | MR_ITS ---
MRI OF THE BRAIN WITH AND WITHOUT IV CONTRAST INDICATION: Multiple sclerosis flare. COMPARISON: Head CT June 13, 2020 and brain MRI October 13, 2018. TECHNIQUE: Multiplanar multisequence MR imaging of the brain was obtained without and following the administration of 8.5 mL of Gadavist without complication. FINDINGS: There is a new 1.3 cm lesion within the left occipital white matter exhibiting peripheral enhancement on image 10 of series 10 and there is a new punctate enhancing lesion within the right frontal white matter on image 22 of series 10 with these enhancing foci most concerning for foci of active demyelination. There are also a multiple suspected active demyelinating lesions exhibiting restricted diffusion without enhancement within the right frontal centrum semiovale, the left cingulate gyrus, the right occipital lobe, the left pontomesencephalic junction, and the right middle cerebellar peduncle. Extensive lesional burden throughout the supratentorial periventricular and subcortical white matter as well as the infratentorial brain has significantly progressed when compared to the October 13, 2018 MRI. Multiple new lesions within the brainstem, the right middle cerebellar peduncle, the left cerebellar peduncle, as well as the supratentorial periventricular and subcortical white matter as well as the corpus callosum. Multiple chronic low T1 signal intensity lesions. There is global cerebral and callosal volume loss. There is no hydrocephalus, extra-axial surface collection, or herniation. The major flow voids at the skull base are preserved. There is no acute infarct on diffusion-weighted imaging. There is no intracranial hemorrhage on the gradient recalled echo acquisition. The craniocervical junction is normal. Osseous marrow signal intensity is homogenous. The visualized soft tissues are unremarkable. MR/MR head/brain wo/w con IMPRESSION: - There is a new 1.3 cm lesion within the left occipital white matter exhibiting peripheral enhancement on image 10 of series 10 and there is a new punctate enhancing lesion within the right frontal white matter on image 22 of series 10 with these two enhancing foci most concerning for foci of active demyelination. There are also a multiple suspected active demyelinating lesions exhibiting restricted diffusion without enhancement within the right frontal centrum semiovale, the left cingulate gyrus, the right occipital lobe, the left pontomesencephalic junction, and the right middle cerebellar peduncle. - Extensive lesional burden throughout the supratentorial periventricular and subcortical white matter as well as the infratentorial brain has significantly progressed when compared to the October 13, 2018 MRI. - There is global cerebral and callosal volume loss.
[2020-06-14 19:44] VITALS: BP 109/64; PULSE 100; RESP 18; TEMP 36.6; O2SAT 95
[2020-06-14] MEDS: Amitriptyline HCl 50 MG TABLET 150 MG PO (20:57)
[2020-06-14 23:39] VITALS: BP 106/53; PULSE 98; RESP 16; TEMP 36.1; O2SAT 92
[2020-06-15] VITALS (7 sets, daily range): BP systolic 101–114; BP diastolic 48–68; PULSE 80–96; RESP 16–18; TEMP 35.9–36.7; O2SAT 93–96
[2020-06-15] MEDS: 0.9 % Sodium Chloride Flush 3 ML SYRINGE IVFLUSH ×3 (00:52→17:01)
--- NOTE | 2020-06-15 10:01 | P.PNIM_ITS ---
Subjective Subjective Date of Service: 06/16/20 Interval History: Patient feeling better this morning he has mostly bed ridden since he has unsteady gait, patient denies any new weakness numbness tingling vision loss, bowel or bladder issues. Review of Systems General no headache, no dizziness no fever chills. CVS no chest pain, no palpitation. Respiratory no cough, no shortness of breath Gastrointestinal no nausea, no vomiting, no abdominal pain Physical Exam Vital Signs: Vital Signs: Last Vital Signs Temp 97.7 F 06/15/20 06:43 Pulse 86 06/15/20 06:43 Resp 18 06/15/20 06:43 BP 104/62 06/15/20 06:43 Pulse Ox 94 06/15/20 06:43 Body Mass Index 29.6 Const: Other: General patient resting comfortably ,no acute distress. Neck supple no JVD. CVS regular rate rhythm, Respiratory lungs clear to auscultation, no respiratory distress Gastrointestinal abdomen soft, nontender, bowel sounds audible Extremities no clubbing cyanosis or edema. Neuro speech clear, unsteady gait. Skin no rash Objective Data Current Medications Generic Name Dose Route Start Last Admin Trade Name Freq PRN Reason Stop Dose Admin Acetaminophen 650 mg 06/13/20 17:08 Acetaminophen 325 Mg Tablet PO Q6H PRN Pain, Mild (Pain Scale 1-3) Amitriptyline HCl 150 mg 06/13/20 21:00 06/14/20 20:57 Amitriptyline Hcl 50 Mg Tablet PO 150 mg BEDTIME KAVIN Administration Ergocalciferol 1,250 mcg 06/19/20 09:00 Ergocalciferol (Vitamin D2) 1,250 Mcg Capsule PO Mo@0900 KAVIN Heparin Sodium (Porcine) 5,000 unit 06/13/20 20:00 06/14/20 20:55 Heparin Sodium,Porcine 5,000 Unit/Ml Vial SUBCUT 5,000 unit Q12H KAVIN Administration Methylprednisolone Sodium 116 mls @ 100 mls/hr 06/14/20 09:00 06/14/20 12:18 Succinate 1,000 mg/ Sodium IV 06/18/20 12:00 Infused Chloride DAILY KAVIN Infusion Ondansetron HCl 4 mg 06/13/20 17:08 Ondansetron Hcl 4 Mg/2 Ml Vial IVPUSH Q8H PRN Nausea and Vomiting Pharmacy Consult 1 each 06/13/20 16:11 Consult Rx Perform Med Rec MISCELLANE ONCE PRN Consult order Primidone 50 mg 06/13/20 21:00 06/14/20 20:57 Primidone 50 Mg Tablet PO 50 mg BID KAVIN Administration Sodium Chloride 3 ml 06/14/20 00:00 06/15/20 00:52 0.9 % Sodium Chloride Flush 3 Ml Syringe IVFLUSH 3 ml QSHIFT KAVIN Administration Labs CBC & Chem 7: 06/14/20 05:53 06/14/20 05:53 Assessment and Plan (1) Generalized weakness: Status: Acute (2) Multiple falls: Status: Acute (3) Multiple sclerosis exacerbation: Status: Acute (4) Alcohol dependence: Status: Acute (5) Depression: Status: Acute (6) Anxiety: Status: Acute (7) Seizures: Status: Acute (8) Multiple sclerosis: Status: Acute Assessment and Plan: 49 years old man with history of multiple sclerosis, seizure disorder, alcohol dependence depression and anxiety presented to the emergency room due to multiple falls unsteady gait and generalized weakness he denied any loss of consciousness or head injury a CT brain and cervical spine showed no acute abnormality patient was placed on IV Solu-Medrol with concern for multiple sclerosis flare. Exacerbation of multiple sclerosis. No new neuro symptoms,no numbness tingling no visual symptoms, admitted with generalized weakness fall and unsteady gait Patient has history of severe multiple sclerosis of remitting relapsing type, patient stop taking tysabri 3 months ago since he felt it was not helping. MRI showed multiple new lesions suggestive of demyelinating disease, patient seen by Dr. Farias he recommend to continue IV Solu-Medrol for 5 days Patient seen by Physical therapy and they are recommending short-term rehab upon discharge due to persistent ataxic gait and high risk of fall with generalized weakness might need rehab placement patient will need to have close outpatient Neurology follow-up for immuno modulating agent Patient expressed that he is very depressed due to new lesions will obtain care team consult.Support provided. History of seizure continue seizure precaution. Continue primidone, no seizure- like activity noted. History of anxiety depression continue home medication amitriptyline. DVT prophylaxis continue heparin
[2020-06-15] MEDS: Heparin Sodium,Porcine 5,000 UNIT/ML VIAL 5000 UNIT SUBCUT ×2 (10:32→20:17)
[2020-06-15] MEDS: Primidone 50 MG TABLET PO ×2 (10:32→20:17)
--- NOTE | 2020-06-15 13:32 | MHC.CM.PN ---
CM SPOKE WITH PT'S MOTHER TO FIND OUT IF THERE IS A HCP, PER MOM JOON PT DOES NOT HAVE A HCP AND REPORTED SHE DOES NOT WANT TO BE DUE TO HER AGE. CM THEN MET WITH PT WHO WOULD LIKE TO COMPLETE A HCP AND NAMED HIS DAUGHTER MIKE KEENE HIS PROXY WITH NO ALTERNATE AT THIS TIME. CM TO COMPLETE ONCE CONTACT INFORMATION IS RECEIVED FROM DAUGHTER. CM HAS BEEN IN CONTACT WITH DAUGHTER PER PT REQUEST AND HAS COMMUNICATED VIA EMAIL PER DAUGHTERS REQUEST. DAUGHTER HAD CONCERNS REGARDING PT'S ANXIETY AND DEPRESSION WHICH HAS BEEN WORSENING DUE TO INCREASED FREQUENT AND WORSENING MS FLARE UPS. CM CONTACTED ATTENDING WHO ORDERED A CARE TEAM CONSULT, PER CARE TEAM THEY WILL REFER PT TO [facility] FOR THERAPY. PT WAS AGREEABLE TO THIS. DAUGHTER ALSO REPORTS CONCERN FOR PT AND HIS INABILITY TO LIVE ALONE AND WAS ENCOURAGED TO CONTACT PT'S PCP AND [facility] FOR WIRE WELDER WHICH PT SHOULD QUALIFY FOR DO TO DISABILITY. PT IS CLINICALLY ACCEPTED BY [facility] IN [place]. PER PT'S MOM PT HAS TOLD HER THAT HE IS READY TO LIVE IN A CORRECTION HOWEVER DUE TO HIS ISURANCE HAS NOT BEEN ABLE TO. CM WILL CONTACT FIN[facility]CIAL SERVICES FOR PT TO SEE IF THEY CAN BE OF ANY ASSISTANCE WITH THIS, PT AND DAUGHTER ARE AWARE. DISCHARGE PLAN ANTICPATED FOR 06/18/20 TO [facility] VIA BLS TRANSPORT. CM WILL CONTINUE TO MONITOR PT FOR DISCHARGE NEEDS.
--- NOTE | 2020-06-15 14:08 | MHC.CARE ---
CARE Team met with Pt secondary to a consult placed for depression . CARE Team spoke with Case Management who reported Pt was interested in a therapy referral. Pt has been isolated due to COVID and also is diagnosed with MS, which he is currently hospitalized with a flare up. Pt reports interest in therapy for support for his mental health. Pt agreeable to therapy referral for [facility]. CARE Team to refer Pt to [facility]. Pt like a STR placement upon discharge.
--- NOTE | 2020-06-15 16:03 | MHC.CM.PN ---
REFERRAL FAXED TO [facility] DUE TO PT'S INSURANCE NOT COVERING HOME SERVICES AND POSSIBLE NEED FOR ASSISTED CARE DUE TO WORSENING MS SYMPTOMS AND FLARE UPS.
[2020-06-15] MEDS: Amitriptyline HCl 50 MG TABLET 150 MG PO (20:17)
[2020-06-15] MEDS: Zolpidem Tartrate 5 MG TABLET PO (21:09)
[2020-06-16] VITALS (7 sets, daily range): BP systolic 114–138; BP diastolic 54–87; PULSE 70–93; RESP 16–18; TEMP 35.9–36.8; O2SAT 95–98
[2020-06-16] MEDS: 0.9 % Sodium Chloride Flush 3 ML SYRINGE IVFLUSH ×4 (01:10→21:39)
--- NOTE | 2020-06-16 10:09 | MHC.CM.PN ---
Addendum entered by Nelda Sadler RN 06/16/20 10:11: PT GIVEN 4 COPIES OF HCP, COPY UPLOADED TO [id number] [employer] AND COPY PLACED IN CHART WITH PT'S PERMISSION. Original Note: CM COMPLETED HCP WITH PATIENT, DUE TO PATIENTS MS HE WAS ONLY ABLE TO SIGN WITH AN X, PT IS ALERT AND ORIENTED AND ABLE TO NAME HIS HCP HIS DAUGHTER MIKE KEENE [phone].
[2020-06-16] MEDS: Heparin Sodium,Porcine 5,000 UNIT/ML VIAL 5000 UNIT SUBCUT ×2 (10:56→19:48)
[2020-06-16] MEDS: Primidone 50 MG TABLET PO ×2 (10:57→21:38)
--- NOTE | 2020-06-16 11:44 | MHC.CM.PN ---
Addendum entered by Nelda Sadler RN 06/16/20 11:58: CM RECIEVED MESSAGE FROM [facility] AND THEY WILL NOT HAVE A BED UNTIL MONDAY 06/19, ATTENDING AWARE. Original Note: PER ATTENDING AT MULTIDISCIPLINARY ROUNDS PT WILL BE READY FOR DISCHARGE ON SUNDAY 06/18 AFTER LAST DOSE OF IV STEROIDS, PT WILL TRANSFER TO [facility] FOR ACUTE REHAB PENDING BED AVAILABILITY VIA BLS TRANSPORT.
--- NOTE | 2020-06-16 14:23 | HO.PM.IMPN ---
Subjective Subjective Date of Service: 06/16/20 Interval History: Patient feeling better this morning he has mostly bed ridden since he has unsteady gait, patient denies any new weakness numbness tingling vision loss, bowel or bladder issues. Review of Systems General no headache, no dizziness, no fever chills. CVS no chest pain, no palpitation. Respiratory no cough, no shortness of breath Gastrointestinal no nausea, no vomiting, no abdominal pain, no diarrhea Physical Exam Vital Signs: Vital Signs: Last Vital Signs Temp 97.1 F 06/16/20 12:00 Pulse 93 06/16/20 12:00 Resp 16 06/16/20 12:00 BP 122/72 06/16/20 12:00 Pulse Ox 96 06/16/20 12:00 Body Mass Index 29.6 Const: Other: General eating breakfast no acute distress. Neck supple no JVD. CVS regular rate rhythm, Respiratory lungs clear to auscultation, no respiratory distress Gastrointestinal abdomen soft, nontender, bowel sounds audible Extremities no clubbing cyanosis or edema. Neuro speech clear, unsteady gait. Skin no rash Objective Data Current Medications Generic Name Dose Route Start Last Admin Trade Name Freq PRN Reason Stop Dose Admin Acetaminophen 650 mg 06/13/20 17:08 Acetaminophen 325 Mg Tablet PO Q6H PRN Pain, Mild (Pain Scale 1-3) Amitriptyline HCl 150 mg 06/13/20 21:00 06/15/20 20:17 Amitriptyline Hcl 50 Mg Tablet PO 150 mg BEDTIME KAVIN Administration Ergocalciferol 1,250 mcg 06/19/20 09:00 Ergocalciferol (Vitamin D2) 1,250 Mcg Capsule PO Mo@0900 KAVIN Heparin Sodium (Porcine) 5,000 unit 06/13/20 20:00 06/16/20 10:56 Heparin Sodium,Porcine 5,000 Unit/Ml Vial SUBCUT 5,000 unit Q12H KAVIN Administration Methylprednisolone Sodium 116 mls @ 100 mls/hr 06/14/20 09:00 06/16/20 12:27 Succinate 1,000 mg/ Sodium IV 06/18/20 12:00 Infused Chloride DAILY KAVIN Infusion Ondansetron HCl 4 mg 06/13/20 17:08 Ondansetron Hcl 4 Mg/2 Ml Vial IVPUSH Q8H PRN Nausea and Vomiting Pharmacy Consult 1 each 06/13/20 16:11 Consult Rx Perform Med Rec MISCELLANE ONCE PRN Consult order Primidone 50 mg 06/13/20 21:00 06/16/20 10:57 Primidone 50 Mg Tablet PO 50 mg BID KAVIN Administration Sodium Chloride 3 ml 06/14/20 00:00 06/16/20 10:57 0.9 % Sodium Chloride Flush 3 Ml Syringe IVFLUSH 3 ml QSHIFT KAVIN Administration Zolpidem Tartrate 5 mg 06/15/20 20:52 06/15/20 21:09 Zolpidem Tartrate 5 Mg Tablet PO 5 mg BEDTIME PRN Administration Insomnia Labs CBC & Chem 7: 06/14/20 05:53 06/14/20 05:53 Assessment and Plan (1) Generalized weakness: Status: Acute (2) Multiple falls: Status: Acute (3) Multiple sclerosis exacerbation: Status: Acute (4) Alcohol dependence: Status: Acute (5) Depression: Status: Acute (6) Anxiety: Status: Acute (7) Seizures: Status: Acute (8) Multiple sclerosis: Status: Acute Assessment and Plan: 49 years old man with history of multiple sclerosis, seizure disorder, alcohol dependence depression and anxiety presented to the emergency room due to multiple falls unsteady gait and generalized weakness he denied any loss of consciousness or head injury a CT brain and cervical spine showed no acute abnormality patient was placed on IV Solu-Medrol with concern for multiple sclerosis flare. Exacerbation of multiple sclerosis. No new neuro symptoms,no numbness tingling no visual symptoms, admitted with generalized weakness fall and unsteady gait Patient has history of severe multiple sclerosis of remitting relapsing type, patient stop taking tysabri 3 months ago since he felt it was not helping. MRI showed multiple new lesions suggestive of demyelinating disease, patient seen by Dr. Farias he recommend to continue IV Solu-Medrol day4/5 Patient seen by Physical therapy and they are recommending short-term rehab upon discharge due to persistent ataxic gait and high risk of fall with generalized weakness might need rehab placement patient will need to have close outpatient Neurology follow-up for immuno modulating agent Patient expressed that he is very depressed therefore seen by care team patient is agreeing to outpatient counseling at [facility].Support provided. History of seizure continue seizure precaution. Continue primidone, no seizure-like activity noted. History of anxiety depression continue home medication amitriptyline. DVT prophylaxis continue heparin
[2020-06-16] MEDS: Amitriptyline HCl 50 MG TABLET 150 MG PO (21:38)
[2020-06-16] MEDS: ondansetron HCL 4 MG/2 ML VIAL IVPUSH (21:38)
[2020-06-16] MEDS: Zolpidem Tartrate 5 MG TABLET PO (21:44)
[2020-06-17 03:47] VITALS: BP 115/75; PULSE 68; RESP 16; TEMP 36.4; O2SAT 95
--- NOTE | 2020-06-17 06:41 | PC.NURSE ---
PT AMBULATED TO BR UNABLE TO VOID.BLADDER SCANNED FOR 607 CC. NOTIFIED.ORDERED TO INSERT WARD AND SEND UA.
--- NOTE | 2020-06-17 06:42 | PM.EVENT ---
Event Note Date of Service: 06/17/20 Event Note: pt experiencing urinary retention will place tubbs cath and pbtain UA
[2020-06-17] MEDS: 0.9 % Sodium Chloride Flush 3 ML SYRINGE IVFLUSH ×3 (07:52→20:24)
[2020-06-17] MEDS: Primidone 50 MG TABLET PO ×2 (07:53→20:22)
[2020-06-17] MEDS: Heparin Sodium,Porcine 5,000 UNIT/ML VIAL 5000 UNIT SUBCUT ×2 (07:53→19:37)
[2020-06-17 08:00] VITALS: BP 111/67; PULSE 78; RESP 17; TEMP 36.7; O2SAT 99
[2020-06-17 08:09] LABS: Glucose Urine UA NEG (NEG); Leukocyte Esterase Urine NEG (NEG); Nitrite Urine NEG (NEG); Specific Gravity - Urine 1.025 (1.005-1.025); Urine Blood NEG (NEG); Urine Ketones NEG (NEG); Urine Protein NEG (NEG-TRACE)
[2020-06-17 08:12] LABS: Appearance Urine CLEAR; Color Urine YELLOW
[2020-06-17 12:00] VITALS: BP 132/72; PULSE 96; RESP 17; TEMP 36.4; O2SAT 98
--- NOTE | 2020-06-17 14:07 | HO.PM.IMPN ---
Subjective Subjective Date of Service: 06/17/20 Interval History: Patient feeling better this morning he has mostly bed ridden since he has unsteady gait, patient denies any new weakness numbness tingling vision loss, bowel or bladder issues. Review of Systems General no headache, no dizziness, no fever chills. CVS no chest pain, no palpitation. Respiratory no cough, no shortness of breath Gastrointestinal no nausea, no vomiting, no abdominal pain, no diarrhea Physical Exam Vital Signs: Vital Signs: Last Vital Signs Temp 98.0 F 06/17/20 08:00 Pulse 78 06/17/20 08:00 Resp 17 06/17/20 08:00 BP 111/67 06/17/20 08:00 Pulse Ox 99 06/17/20 08:00 Body Mass Index 29.6 General eating breakfast no acute distress. Neck supple no JVD. CVS regular rate rhythm, Respiratory lungs clear to auscultation, no respiratory distress Gastrointestinal abdomen soft, nontender, bowel sounds audible Extremities no clubbing cyanosis or edema. Neuro speech clear, unsteady gait. Skin no rash Objective Data Current Medications Generic Name Dose Route Start Last Admin Trade Name Freq PRN Reason Stop Dose Admin Acetaminophen 650 mg 06/13/20 17:08 Acetaminophen 325 Mg Tablet PO Q6H PRN Pain, Mild (Pain Scale 1-3) Amitriptyline HCl 150 mg 06/13/20 21:00 06/16/20 21:38 Amitriptyline Hcl 50 Mg Tablet PO 150 mg BEDTIME KAVIN Administration Ergocalciferol 1,250 mcg 06/19/20 09:00 Ergocalciferol (Vitamin D2) 1,250 Mcg Capsule PO Mo@0900 KAVIN Heparin Sodium (Porcine) 5,000 unit 06/13/20 20:00 06/17/20 07:53 Heparin Sodium,Porcine 5,000 Unit/Ml Vial SUBCUT 5,000 unit Q12H KAVIN Administration Methylprednisolone Sodium 116 mls @ 100 mls/hr 06/14/20 09:00 06/17/20 11:32 Succinate 1,000 mg/ Sodium IV 06/18/20 12:00 Infused Chloride DAILY KAVIN Infusion Ondansetron HCl 4 mg 06/13/20 17:08 06/16/20 21:38 Ondansetron Hcl 4 Mg/2 Ml Vial IVPUSH 4 mg Q8H PRN Administration Nausea and Vomiting Pharmacy Consult 1 each 06/13/20 16:11 Consult Rx Perform Med Rec MISCELLANE ONCE PRN Consult order Primidone 50 mg 06/13/20 21:00 06/17/20 07:53 Primidone 50 Mg Tablet PO 50 mg BID KAVIN Administration Sodium Chloride 3 ml 06/14/20 00:00 06/17/20 07:52 0.9 % Sodium Chloride Flush 3 Ml Syringe IVFLUSH 3 ml QSHIFT KAVIN Administration Zolpidem Tartrate 5 mg 06/15/20 20:52 06/16/20 21:44 Zolpidem Tartrate 5 Mg Tablet PO 5 mg BEDTIME PRN Administration Insomnia Labs CBC & Chem 7: 06/14/20 05:53 06/14/20 05:53 Assessment and Plan (1) Generalized weakness: Status: Acute (2) Multiple falls: Status: Acute (3) Multiple sclerosis exacerbation: Status: Acute (4) Alcohol dependence: Status: Acute (5) Depression: Status: Acute (6) Anxiety: Status: Acute (7) Seizures: Status: Acute (8) Multiple sclerosis: Status: Acute Assessment and Plan: 49 years old man with history of multiple sclerosis, seizure disorder, alcohol dependence depression and anxiety presented to the emergency room due to multiple falls unsteady gait and generalized weakness he denied any loss of consciousness or head injury a CT brain and cervical spine showed no acute abnormality patient was placed on IV Solu-Medrol with concern for multiple sclerosis flare. Exacerbation of multiple sclerosis. Patient noted to have urinary retention, therefore Cao catheter placed last night likely related to worsening MS new lesions. UA negative for infection, no blood. No other neuro symptoms,no numbness tingling no visual symptoms, admitted with generalized weakness fall and unsteady gait Patient has history of severe multiple sclerosis of remitting relapsing type, patient stop taking tysabri 3 months ago since he felt it was not helping. MRI showed multiple new lesions suggestive of demyelinating disease, patient seen by Dr. Farias he recommend to continue IV Solu-Medrol day 5/5 today Patient seen by Physical therapy and they are recommending short-term rehab upon discharge due to persistent ataxic gait and high risk of fall with generalized weakness patient will need to have close outpatient Neurology follow-up for immuno modulating agent outpatient counseling at [facility] upon discharge due to depressive symptoms,Support provided. History of seizure continue seizure precaution. Continue primidone, no seizure-like activity noted. History of anxiety depression continue home medication amitriptyline. DVT prophylaxis continue heparin
[2020-06-17 16:00] VITALS: BP 109/66; PULSE 87; RESP 19; TEMP 36.3; O2SAT 95
[2020-06-17 18:51] VITALS: BP 107/62; PULSE 104; RESP 20; TEMP 36.4; O2SAT 94
[2020-06-17] MEDS: Amitriptyline HCl 50 MG TABLET 150 MG PO (20:22)
[2020-06-17] MEDS: Zolpidem Tartrate 5 MG TABLET PO (20:26)
[2020-06-17 23:21] VITALS: BP 118/74; PULSE 93; RESP 19; TEMP 36.8; O2SAT 96
[2020-06-18 03:36] VITALS: BP 114/80; PULSE 76; RESP 19; TEMP 36.7; O2SAT 94
[2020-06-18 07:47] VITALS: BP 121/72; PULSE 90; RESP 18; TEMP 36.1; O2SAT 90
--- NOTE | 2020-06-18 08:33 | MHC.CM.PN ---
[facility] UPDATED IN [facility]. ALTHOUGH THERE IS NO DEFINITE OFFER, THEY ARE TRYING TO ACCEPT PATIENT FOR Friday06/19/20
--- NOTE | 2020-06-18 08:42 | MHC.CM.PN ---
[facility] STATES THAT THEY ARE NOW ABLE TO ACCEPT TOMORROW. WILL NEED COVID SWAB. HOSPITALIST AWARE
--- NOTE | 2020-06-18 09:08 | HO.PM.IMPN ---
Subjective Subjective Date of Service: 06/18/20 Interval History: Patient offers no acute complaints, resting comfortably, no issues with Cao cath, no history of prior urinary retention. Review of Systems General no headache, no dizziness, no fever chills. CVS no chest pain, no palpitation. Respiratory no cough, no shortness of breath Gastrointestinal no nausea, no vomiting, no abdominal pain, no diarrhea Physical Exam Vital Signs: Vital Signs: Last Vital Signs Temp 96.9 F 06/18/20 07:47 Pulse 90 06/18/20 07:47 Resp 18 06/18/20 07:47 BP 121/72 06/18/20 07:47 Pulse Ox 90 L 06/18/20 07:47 Body Mass Index 29.6 General resting in bed, no acute distress. Neck supple no JVD. CVS regular rate rhythm, Respiratory lungs clear to auscultation, no respiratory distress Gastrointestinal abdomen soft, nontender, bowel sounds audible Extremities no clubbing cyanosis or edema. Neuro speech clear, unsteady gait. Skin no rash Cao catheter with clear urine Objective Data Current Medications Generic Name Dose Route Start Last Admin Trade Name Freq PRN Reason Stop Dose Admin Acetaminophen 650 mg 06/13/20 17:08 Acetaminophen 325 Mg Tablet PO Q6H PRN Pain, Mild (Pain Scale 1-3) Amitriptyline HCl 150 mg 06/13/20 21:00 06/17/20 20:22 Amitriptyline Hcl 50 Mg Tablet PO 150 mg BEDTIME KAVIN Administration Ergocalciferol 1,250 mcg 06/19/20 09:00 Ergocalciferol (Vitamin D2) 1,250 Mcg Capsule PO Mo@0900 [facility] Heparin Sodium (Porcine) 5,000 unit 06/13/20 20:00 06/17/20 19:37 Heparin Sodium,Porcine 5,000 Unit/Ml Vial SUBCUT 5,000 unit Q12H KAVIN Administration Methylprednisolone Sodium 116 mls @ 100 mls/hr 06/14/20 09:00 06/17/20 11:32 Succinate 1,000 mg/ Sodium IV 06/18/20 12:00 Infused Chloride DAILY KAVIN Infusion Ondansetron HCl 4 mg 06/13/20 17:08 06/16/20 21:38 Ondansetron Hcl 4 Mg/2 Ml Vial IVPUSH 4 mg Q8H PRN Administration Nausea and Vomiting Pharmacy Consult 1 each 06/13/20 16:11 Consult Rx Perform Med Rec MISCELLANE ONCE PRN Consult order Primidone 50 mg 06/13/20 21:00 06/17/20 20:22 Primidone 50 Mg Tablet PO 50 mg BID KAVIN Administration Sodium Chloride 3 ml 06/14/20 00:00 06/17/20 20:24 0.9 % Sodium Chloride Flush 3 Ml Syringe IVFLUSH 3 ml QSHIFT KAVIN Administration Zolpidem Tartrate 5 mg 06/15/20 20:52 06/17/20 20:26 Zolpidem Tartrate 5 Mg Tablet PO 5 mg BEDTIME PRN Administration Insomnia Labs CBC & Chem 7: 06/14/20 05:53 06/14/20 05:53 Assessment and Plan (1) Generalized weakness: Status: Acute (2) Multiple falls: Status: Acute (3) Multiple sclerosis exacerbation: Status: Acute (4) Alcohol dependence: Status: Acute (5) Anxiety: Status: Acute (6) Depression: Status: Acute (7) Seizures: Status: Acute (8) Multiple sclerosis: Status: Acute (9) Urinary retention: Status: Acute Assessment and Plan: 49 years old man with history of multiple sclerosis, seizure disorder, alcohol dependence depression and anxiety presented to the emergency room due to multiple falls unsteady gait and generalized weakness he denied any loss of consciousness or head injury a CT brain and cervical spine showed no acute abnormality patient was placed on IV Solu-Medrol with concern for multiple sclerosis flare. Exacerbation of multiple sclerosis. No acute issues overnight, will continue Cao catheter for urinary retention, UA negative for infection, no hematuria No other neuro symptoms,no numbness tingling, no visual symptoms, admitted with generalized weakness fall and unsteady gait Patient has history of severe multiple sclerosis of remitting relapsing type, patient stop taking tysabri 3 months ago since he felt it was not helping. MRI showed multiple new lesions suggestive of demyelinating disease, will continue IV Solu-Medrol day 09/27 today, Solu-Medrol was started from June 14 Being followed by Neurology. Patient seen by Physical therapy and they are recommending short-term rehab upon discharge due to persistent ataxic gait and high risk of fall with generalized weakness patient will need to have close outpatient Neurology follow-up for immuno modulating agent upon discharge from rehab will check COVID test. outpatient counseling at [facility] upon discharge due to depressive symptoms,Support provided. History of seizure continue seizure precaution. Continue primidone, no seizure-like activity noted. History of anxiety depression continue home medication amitriptyline. Outpatient follow-up with [facility] DVT prophylaxis continue heparin
[2020-06-18] MEDS: Heparin Sodium,Porcine 5,000 UNIT/ML VIAL 5000 UNIT SUBCUT ×2 (09:25→20:44)
[2020-06-18] MEDS: Primidone 50 MG TABLET PO ×2 (09:25→20:44)
[2020-06-18] MEDS: 0.9 % Sodium Chloride Flush 3 ML SYRINGE IVFLUSH ×3 (09:25→20:44)
[2020-06-18 11:40] VITALS: BP 110/61; PULSE 83; RESP 16; TEMP 36.3; O2SAT 95
[2020-06-18 12:58] LABS: COVID-19 Test Negative (Negative)
[2020-06-18 15:03] VITALS: BP 116/70; PULSE 100; RESP 24; TEMP 36.3; O2SAT 96
[2020-06-18 18:51] VITALS: BP 110/61; PULSE 101; RESP 20; TEMP 36.7; O2SAT 96
[2020-06-18] MEDS: Amitriptyline HCl 50 MG TABLET 150 MG PO (20:44)
[2020-06-18 23:48] VITALS: BP 105/55; PULSE 80; RESP 16; TEMP 36.2; O2SAT 94
[2020-06-19 04:00] VITALS: BP 115/68; PULSE 72; RESP 16; TEMP 36.6; O2SAT 97
[2020-06-19 08:00] VITALS: BP 109/65; PULSE 73; RESP 17; TEMP 35.9; O2SAT 96
[2020-06-19] MEDS: Heparin Sodium,Porcine 5,000 UNIT/ML VIAL 5000 UNIT SUBCUT (08:04)
[2020-06-19] MEDS: Primidone 50 MG TABLET PO (08:05)
[2020-06-19] MEDS: 0.9 % Sodium Chloride Flush 3 ML SYRINGE IVFLUSH (08:05)
[2020-06-19] MEDS: Ergocalciferol (Vitamin D2) 1,250 MCG CAPSULE 1250 MCG PO (10:00)
--- NOTE | 2020-06-19 11:17 | MHC.CM.PN ---
PT TO BE TRANSFERRED TO [facility] 1;00 today via action
--- NOTE | 2020-06-19 11:30 | P.DS_ITS ---
DS: Providers Provider Date of Service: 06/19/20 Date of admission: 06/13/20 17:08 Primary care physician: Jhony Campbell MD Consults: 06/13/20 17:08 Consult to Neurology Routine Consulting Provider: [facility] Reason for consultation: MS flare Has provider been notified: No 06/15/20 12:25 Consult to Care Team Routine Comment: Reason for consultation: depression due to worsening of multiple sclerosis DS: Diagnosis Discharge Diagnosis (1) Generalized weakness: Status: Acute (2) Multiple falls: Status: Acute (3) Multiple sclerosis exacerbation: Status: Acute (4) Alcohol dependence: Status: Acute (5) Anxiety: Status: Acute (6) Depression: Status: Acute (7) Seizures: Status: Acute (8) Multiple sclerosis: Status: Acute (9) Urinary retention: Status: Acute DS: Medications Discharge Medications Home Medications: Home Medications Medication Instructions Recorded Confirmed amitriptyline 150 mg PO BEDTIME 06/13/20 06/13/20 ergocalciferol (vitamin D2) 1,250 mcg PO QWEEK 06/13/20 06/13/20 [Vitamin D2] primidone 50 mg PO BID 06/13/20 06/13/20 DS: Summary Hospital Course Hospital Course: 49-year-old man with a history of MS, presents with complaints of multiplefalls over the last 4 days. He reports feeling generalized weakness. Hedenied any headache, visual changes, nausea, vomiting, diarrhea, chest pain,shortness of breath, cold symptoms, recent travel or sick contacts. He doesnot have any focal weakness or paresthesias. He has a previous history ofalcohol dependence, which he denies and reports that he quit smokingapproximately 3 months ago. Labs are all within acceptable limits. He hadmultiple imaging studies including cervical spine CT, head CT and chest x-ray, all negative for any acute abnormality. His vital signs have remained stable.He reports compliance to medications, however, reported that he was gettingmonthly injections for his MS, but stopped approximately 3 months ago becauseof the side effects. In the ER, he received 1 g of Solu-Medrol, Tylenol andZofran. He will be admitted for further management and treatment of acute MS flare. PAST MEDICAL HISTORY: 1. Multiple sclerosis. 2. Alcohol abuse, denies at this time. 3. Depression. 4. Anxiety. Exacerbation of multiple sclerosis 49 years old man with history of multiple sclerosis, seizure disorder, alcohol dependence depression and anxiety presented to the emergency room due to multiple falls unsteady gait and generalized weakness he denied any loss of consciousness or head injury a CT brain and cervical spine showed no acute abnormality ,MRI showed multiple new lesions suggestive of demyelinating disease, patient was treated with 5 days of IV Solu-Medrol as per Neurology recommendation, during the course of hospitalization patient was noted to have urinary retention therefore placed on Cao catheter urinalysis was negative for infection, no hematuria, patient was evaluated by Physical therapy and they are recommending short-term rehab due to persistent ataxic gait and high risk of fall with generalized weakness History of seizure continue seizure precaution. Continue primidone, no seizure- like activity noted during hospitalization. History of anxiety depression continue home medication amitriptyline, patient was evaluated by care team due to worsening depression and they are recommending outpatient follow-up with [facility] Time Spent with Patient Time attestation: Total time spent providing and/or coordinating discharge services: Discharge coordination time: Greater than 30 minutes Physical Exam Vital Signs: Vital Signs: Last Vital Signs Temp 96.7 F L 06/19/20 08:00 Pulse 73 06/19/20 08:00 Resp 17 06/19/20 08:00 BP 109/65 06/19/20 08:00 Pulse Ox 96 06/19/20 08:00 Body Mass Index 29.6 General resting in bed, no acute distress. Neck supple no JVD. CVS regular rate rhythm, Respiratory lungs clear to auscultation, no respiratory distress Gastrointestinal abdomen soft, nontender, bowel sounds audible Extremities no clubbing cyanosis or edema. Neuro speech clear, unsteady gait. Skin no rash Cao catheter with clear urine DS: Data Data Completed and Pending Labs on day of discharge: Laboratory Tests 06/13/20 06/13/20 06/13/20 13:06 13:06 13:06 WBC 8.1 RBC 5.87 H Hgb 15.8 Hct 48.1 MCV 81.9 MCH 26.9 L MCHC 32.8 RDW 15.2 Plt Count 278 MPV 10.5 Immature Gran % (Auto) 0.2 Neut % (Auto) 69.5 Lymph % (Auto) 24.1 [place] % (Auto) 5.7 Eos % (Auto) 0.0 Baso % (Auto) 0.5 Lymph # (Auto) 2.0 [place] # (Auto) 0.5 Eos # (Auto) 0.0 Baso # (Auto) 0.0 Abs Immat Gran (auto) 0.02 Absolute Neuts (auto) 5.6 Absolute Nucleated RBC 0.000 Nucleated RBC % (auto) 0.0 PT 11.8 INR 1.0 Sodium 139 Potassium 4.4 Chloride 100 Carbon Dioxide 29 Anion Gap 14 BUN 11 Creatinine 0.96 Estim Creat Clear Calc 95.2 Estimated GFR > 60 Random Glucose 88 Calcium 9.2 Magnesium 2.2 Total Bilirubin 0.6 Direct Bilirubin 0.2 AST 18 ALT 27 Alkaline Phosphatase 96 Troponin I High Sens B-Natriuretic Peptide Total Protein 7.1 Albumin 4.4 Urine Color Urine Appearance Urine pH Ur Specific [place] Urine Protein Urine Glucose (UA) Urine Ketones Urine Blood Urine Nitrite Ur Leukocyte Esterase Ethyl Alcohol Coronavirus (PCR) COVID-19 ([place]) COVID-19 Clin Com Influenza Type A (PCR) Influenza Type B (PCR) RSV RNA Qual (PCR) 06/13/20 06/13/20 06/13/20 13:06 13:06 13:06 WBC RBC Hgb Hct MCV MCH MCHC RDW Plt Count MPV Immature Gran % (Auto) Neut % (Auto) Lymph % (Auto) [place] % (Auto) Eos % (Auto) Baso % (Auto) Lymph # (Auto) [place] # (Auto) Eos # (Auto) Baso # (Auto) Abs Immat Gran (auto) Absolute Neuts (auto) Absolute Nucleated RBC Nucleated RBC % (auto) PT INR Sodium Potassium Chloride Carbon Dioxide Anion Gap BUN Creatinine Estim Creat Clear Calc Estimated GFR Random Glucose Calcium Magnesium Total Bilirubin Direct Bilirubin AST ALT Alkaline Phosphatase Troponin I High Sens < 3.5 B-Natriuretic Peptide 15 Cancelled Total Protein Albumin Urine Color Urine Appearance Urine pH Ur Specific [place] Urine Protein Urine Glucose (UA) Urine Ketones Urine Blood Urine Nitrite Ur Leukocyte Esterase Ethyl Alcohol Coronavirus (PCR) NEGATIVE COVID-19 ([place]) COVID-19 Clin Com Influenza Type A (PCR) NEGATIVE Influenza Type B (PCR) NEGATIVE RSV RNA Qual (PCR) NEGATIVE 06/13/20 06/14/20 06/14/20 13:06 05:53 05:53 WBC 7.3 RBC 5.75 Hgb 15.5 Hct 46.8 MCV 81.4 MCH 27.0 MCHC 33.1 RDW 15.0 Plt Count 285 MPV 10.5 Immature Gran % (Auto) 0.6 H Neut % (Auto) 83.9 H Lymph % (Auto) 15.0 L [place] % (Auto) 0.4 L Eos % (Auto) 0.0 Baso % (Auto) 0.1 Lymph # (Auto) 1.1 L [place] # (Auto) 0.0 L Eos # (Auto) 0.0 Baso # (Auto) 0.0 Abs Immat Gran (auto) 0.04 H Absolute Neuts (auto) 6.1 Absolute Nucleated RBC 0.000 Nucleated RBC % (auto) 0.0 PT INR Sodium 138 Potassium 4.4 Chloride 103 Carbon Dioxide 27 Anion Gap 12 BUN 15 Creatinine 0.90 Estim Creat Clear Calc 101.5 Estimated GFR > 60 Random Glucose 154 H D Calcium 9.4 Magnesium Total Bilirubin Direct Bilirubin AST ALT Alkaline Phosphatase Troponin I High Sens B-Natriuretic Peptide Total Protein Albumin Urine Color Urine Appearance Urine pH Ur Specific [place] Urine Protein Urine Glucose (UA) Urine Ketones Urine Blood Urine Nitrite Ur Leukocyte Esterase Ethyl Alcohol < 10 Coronavirus (PCR) COVID-19 ([place]) COVID-19 Clin Com Influenza Type A (PCR) Influenza Type B (PCR) RSV RNA Qual (PCR) 06/17/20 06/18/20 07:54 12:36 WBC RBC Hgb Hct MCV MCH MCHC RDW Plt Count MPV Immature Gran % (Auto) Neut % (Auto) Lymph % (Auto) [place] % (Auto) Eos % (Auto) Baso % (Auto) Lymph # (Auto) [place] # (Auto) Eos # (Auto) Baso # (Auto) Abs Immat Gran (auto) Absolute Neuts (auto) Absolute Nucleated RBC Nucleated RBC % (auto) PT INR Sodium Potassium Chloride Carbon Dioxide Anion Gap BUN Creatinine Estim Creat Clear Calc Estimated GFR Random Glucose Calcium Magnesium Total Bilirubin Direct Bilirubin AST ALT Alkaline Phosphatase Troponin I High Sens B-Natriuretic Peptide Total Protein Albumin Urine Color YELLOW Urine Appearance CLEAR Urine pH 7.0 Ur Specific [place] 1.025 Urine Protein NEG Urine Glucose (UA) NEG Urine Ketones NEG Urine Blood NEG Urine Nitrite NEG Ur Leukocyte Esterase NEG Ethyl Alcohol Coronavirus (PCR) COVID-19 ([place]) Negative COVID-19 Clin Com See Note Influenza Type A (PCR) Influenza Type B (PCR) RSV RNA Qual (PCR) Discharge Plan Discharge Patient Disposition: Xfer SNF Referrals: [facility] [Other] (BLS transportation) [facility] [Outside] (Acute Rehab s/p MS flare) Jhony Campbell MD [Primary Care Provider] - Discharge Medications: Continued primidone 50 mg Tablet 50 mg PO BID RF: 0 amitriptyline 150 mg Tablet 150 mg PO BEDTIME RF: 0 ergocalciferol (vitamin D2) [Vitamin D2] 1,250 mcg (50,000 unit) Capsule 1,250 mcg PO QWEEK RF: 0 Discontinued Tysabri 300 mg/15 mL Solution 300 mg IV Q28D RF: 0 Discharge Orders: Discharge Order (Routine); Ordered 06/19/20 Ordered By: Kacie Capone Diet: regular diet Activity on Discharge: As tolerated Stand Alone Forms: Patient Portal Discharge page Care Plan Goals: Physical therapy Health Concerns: Multiple sclerosis/urinary retention Plan of Treatment: Outpatient follow-up with Neurology and primary care physician
[2020-06-19 12:00] VITALS: BP 121/74; PULSE 80; RESP 16; TEMP 36.1; O2SAT 96
== END 2020-06-19 13:41 | disposition skilled nursing facility (03) | DRG 60 ==
LOC: HO.ED 16:18 → HO.EDOVER 17:38 → HO.S3 06-14 07:29
PROVIDERS: Internal Medicine; Nurse Practitioner Acute Care; Physician Assistant Medical; Admitting Provider Hospitalist; Emergency Provider Emergency Medicine; PCP Internal Medicine; Visit Provider Hospitalist
DX: G35 Multiple sclerosis (principal); G40.909 Epilepsy, unspecified, not intractable, without status epilepticus; R33.9 Retention of urine, unspecified; F32.9 Major depressive disorder, single episode, unspecified; F10.20 Alcohol dependence, uncomplicated; F41.9 Anxiety disorder, unspecified; Z20.822 Contact with and (suspected) exposure to COVID-19; Z79.899 Other long term (current) drug therapy
CPT/HCPCS: 0241U; 36415; 70450; 70553; 71046; 72125; 80048; 80076; 80320; 81003; 83735; 83880; 84484; 85025; 85610; 87635; 93005; 96365; 97116; 97163; 97530; 97535; 99285; 99291; A9585; C1758; J2405; J2930

== ENCOUNTER 2020-08-03 07:52 | Outpatient (REF) | payer MEDICARE, SELFPAY ==
[2020-08-03 11:22] LABS: MANUAL DIFF FLAG NO
[2020-08-03 11:37] LABS: Basophils Absolute Auto 0.1 X10*3/uL (0.0-0.2); Basophils Percent Auto 0.6 % (0-2); Eosinophils Percent Auto 0.1 % (0-4); Hematocrit 48.6 % (42-52); Hemoglobin 15.6 g/dl (14.0-18.0); Imm Gran Abs Auto 0.02 X10*3/uL (0.00-0.03); Imm Gran Pct Auto 0.2 % (0.0-0.4); Lymphocytes Absolute Auto 2.4 X10*3/uL (1.2-4.9); Lymphocytes Percent Auto 28.8 % (20-40); Mean Corpuscular HGB Conc 32.1 g/dl (31.0-36.0); Mean Corpuscular Hemoglobin 27.5 pg (27.0-33.0); Mean Corpuscular Volume 85.6 fL (80-98); Mean Platelet Volume 11.5 fL (9.4-12.4); Monocytes Absolute Auto 0.6 X10*3/uL (0.1-1.2); Monocytes Percent Auto 6.9 % (2-11); Neutrophils Absolute Auto 5.3 X10*3/uL (2.0-8.3); Neutrophils Percent Auto 63.4 % (45-73); Platelet Count 278 X10*3/uL (160-400); Red Blood Count 5.68 X10*6/uL (4.60-5.80); Red Cell Distribution Width 14.7 % (11.0-16.0); White Blood Count 8.4 X10*3/uL (4.8-10.8)
[2020-08-03 12:00] LABS: Alanine Aminotransferase 13 U/L (0-40); Albumin Level 4.3 g/dL (3.5-5.0); Alkaline Phosphatase 99 U/L (39-117); Anion Gap 13 (12-20); Aspartate Amino Transferase 11 U/L (5-37); Bilirubin Total 0.5 mg/dL (0.0-1.0); Blood Urea Nitrogen 16 mg/dL (9-16); Calcium 9.2 mg/dL (8.4-10.2); Carbon Dioxide 32 mmol/L (22-29); Chloride 103 mmol/L (96-108); Estimated Glomerular Filt Rate > 60; Glucose Random 87 mg/dL (60-115); Potassium 3.7 mmol/L (3.3-5.1); Sodium 144 mmol/L (135-145); Total Protein 6.7 g/dL (6.5-8.0)
[2020-08-03 12:23] LABS: Prostate Specific Antigen Scr 0.58 ng/mL (<0.05-4.0)
== END 2020-08-03 07:53 | disposition home or self-care (01) ==
LOC: HO.HMGCLDS 07:52
PROVIDERS: PCP Internal Medicine; Visit Provider Internal Medicine
DX: G35 Multiple sclerosis (principal); J44.9 Chronic obstructive pulmonary disease, unspecified; R35.1 Nocturia; Z12.5 Encounter for screening for malignant neoplasm of prostate
CPT/HCPCS: 36415; 80053; 84153; 85025

== ENCOUNTER 2020-12-20 12:47 | Outpatient (REF) | payer MEDICARE, SELFPAY ==
[2020-12-20 14:05] LABS: Hematocrit 49.8 % (42-52); Hemoglobin 16.3 g/dl (14.0-18.0); Mean Corpuscular HGB Conc 32.7 g/dl (31.0-36.0); Mean Corpuscular Hemoglobin 27.5 pg (27.0-33.0); Mean Corpuscular Volume 84.1 fL (80-98); Mean Platelet Volume 11.2 fL (9.4-12.4); Platelet Count 330 X10*3/uL (160-400); Red Blood Count 5.92 X10*6/uL (4.60-5.80); Red Cell Distribution Width 14.6 % (11.0-16.0); White Blood Count 9.1 X10*3/uL (4.8-10.8)
[2020-12-20 14:20] LABS: Alanine Aminotransferase 10 U/L (0-40); Albumin Level 4.3 g/dL (3.5-5.0); Alkaline Phosphatase 104 U/L (39-117); Anion Gap 16 (12-20); Aspartate Amino Transferase 10 U/L (5-37); Bilirubin Direct < 0.2 mg/dL (0.0-0.5); Bilirubin Total 0.5 mg/dL (0.0-1.0); Blood Urea Nitrogen 15 mg/dL (9-16); Calcium 9.4 mg/dL (8.4-10.2); Carbon Dioxide 23 mmol/L (22-29); Chloride 105 mmol/L (96-108); Estimated Glomerular Filt Rate > 60; Glucose Random 120 mg/dL (60-115); Potassium 4.4 mmol/L (3.3-5.1); Sodium 140 mmol/L (135-145); Total Protein 6.7 g/dL (6.5-8.0)
== END 2020-12-20 12:48 | disposition home or self-care (01) ==
LOC: HO.HMGCLDS 12:47
PROVIDERS: PCP Internal Medicine; Visit Provider Psychiatry & Neurology Neurology
DX: G35 Multiple sclerosis (principal)
CPT/HCPCS: 36415; 80048; 80076; 85027

== ENCOUNTER 2021-01-18 13:22 | Outpatient (REF) | payer MEDICARE, SELFPAY ==
[2021-01-18 13:53] LABS: MANUAL DIFF FLAG NO
[2021-01-18 14:04] LABS: Basophils Percent Auto 0.5 % (0-2); Hematocrit 49.7 % (42-52); Hemoglobin 16.1 g/dl (14.0-18.0); Imm Gran Abs Auto 0.03 X10*3/uL (0.00-0.03); Imm Gran Pct Auto 0.3 % (0.0-0.4); Lymphocytes Percent Auto 22.8 % (20-40); Mean Corpuscular HGB Conc 32.4 g/dl (31.0-36.0); Mean Corpuscular Hemoglobin 27.2 pg (27.0-33.0); Mean Platelet Volume 11.1 fL (9.4-12.4); Monocytes Absolute Auto 0.7 X10*3/uL (0.1-1.2); Monocytes Percent Auto 7.6 % (2-11); Neutrophils Percent Auto 68.8 % (45-73); Platelet Count 343 X10*3/uL (160-400); Red Blood Count 5.92 X10*6/uL (4.60-5.80); Red Cell Distribution Width 14.3 % (11.0-16.0); White Blood Count 8.7 X10*3/uL (4.8-10.8)
[2021-01-18 14:29] LABS: Alanine Aminotransferase 12 U/L (0-40); Albumin Level 4.2 g/dL (3.5-5.0); Alkaline Phosphatase 99 U/L (39-117); Anion Gap 16 (12-20); Aspartate Amino Transferase 11 U/L (5-37); Bilirubin Total 0.6 mg/dL (0.0-1.0); Blood Urea Nitrogen 12 mg/dL (9-16); C Reactive Protein 2.95 mg/dL (< or = 0.50); Calcium 9.4 mg/dL (8.4-10.2); Carbon Dioxide 25 mmol/L (22-29); Chloride 105 mmol/L (96-108); Estimated Glomerular Filt Rate > 60; Glucose Random 91 mg/dL (60-115); Potassium 4.7 mmol/L (3.3-5.1); Sodium 141 mmol/L (135-145); Total Protein 6.5 g/dL (6.5-8.0)
[2021-01-18 14:41] LABS: Thyroid Stimulating Hormone 0.65 uIU/mL (0.32-4.0); Vitamin D 25-OH Total 50.5 ng/mL (>30)
[2021-01-18 14:53] LABS: Vitamin B12 243 pg/mL (200-900)
== END 2021-01-18 13:23 | disposition home or self-care (01) ==
LOC: HO.HMGCLDS 13:22
PROVIDERS: PCP Internal Medicine; Visit Provider Internal Medicine
DX: G35 Multiple sclerosis (principal); G47.00 Insomnia, unspecified; R25.1 Tremor, unspecified; J44.9 Chronic obstructive pulmonary disease, unspecified; E55.9 Vitamin D deficiency, unspecified; M10.9 Gout, unspecified
CPT/HCPCS: 36415; 80053; 82306; 82607; 84443; 85025; 86140

== ENCOUNTER 2021-07-13 14:46 | Outpatient (REF) | payer MEDICARE, SELFPAY ==
[2021-07-13 15:01] LABS: MANUAL DIFF FLAG NO
[2021-07-13 15:13] LABS: Basophils Absolute Auto 0.1 X10*3/uL (0.0-0.2); Basophils Percent Auto 0.5 % (0-2); Eosinophils Percent Auto 0.1 % (0-4); Hematocrit 51.7 % (42.0-52.0); Hemoglobin 17.2 g/dl (14.0-18.0); Imm Gran Abs Auto 0.04 X10*3/uL (0.00-0.03); Imm Gran Pct Auto 0.4 % (0.0-0.4); Lymphocytes Percent Auto 18.6 % (20-40); Mean Corpuscular HGB Conc 33.3 g/dl (31.0-36.0); Mean Corpuscular Hemoglobin 27.7 pg (27.0-33.0); Mean Corpuscular Volume 83.3 fL (80.0-98.0); Mean Platelet Volume 10.5 fL (9.4-12.4); Monocytes Percent Auto 9.6 % (2-11); Neutrophils Absolute Auto 7.4 x10*3/uL (2.0-8.3); Neutrophils Percent Auto 70.8 % (45-73); Platelet Count 368 X10*3/uL (160-400); Red Blood Count 6.21 X10*6/uL (4.60-5.80); Red Cell Distribution Width 16.2 % (11.0-16.0); White Blood Count 10.5 X10*3/uL (4.8-10.8)
[2021-07-13 15:55] LABS: Vitamin D 25-OH Total 50.8 ng/mL (>30)
[2021-07-13 15:56] LABS: Alanine Aminotransferase 9 U/L (0-40); Albumin Level 4.2 g/dL (3.5-5.0); Alkaline Phosphatase 114 U/L (39-117); Anion Gap 12 (12-20); Aspartate Amino Transferase 10 U/L (5-37); Bilirubin Total 0.2 mg/dL (0.0-1.0); Blood Urea Nitrogen 10 mg/dL (9-16); Calcium 9.6 mg/dL (8.4-10.2); Carbon Dioxide 30 mmol/L (22-29); Chloride 102 mmol/L (96-108); Cholesterol 221 mg/dL; Estimated Glomerular Filt Rate > 60; Glucose Random 79 mg/dL (60-115); Potassium 4.7 mmol/L (3.3-5.1); Sodium 139 mmol/L (135-145); Total Protein 6.8 g/dL (6.5-8.0)
== END 2021-07-13 14:47 | disposition home or self-care (01) ==
LOC: HO.LAB 14:46
PROVIDERS: PCP Internal Medicine; Visit Provider Internal Medicine
DX: Z12.5 Encounter for screening for malignant neoplasm of prostate (principal); N40.0 Benign prostatic hyperplasia without lower urinary tract symptoms; J44.9 Chronic obstructive pulmonary disease, unspecified; E55.9 Vitamin D deficiency, unspecified; R25.1 Tremor, unspecified; G35 Multiple sclerosis
CPT/HCPCS: 36415; 80053; 82306; 82465; 84153; 85025

== ENCOUNTER 2021-10-26 10:57 | Outpatient (REF) | payer MEDICARE, SELFPAY ==
--- NOTE | ~2021-10-26 | XR_ITS ---
EXAMINATION: XR HUMERUS, RIGHT CLINICAL INFORMATION: Pain. Rule out lesion. COMPARISON: None TECHNIQUE: AP and lateral views of the right humerus. FINDINGS: No fracture. No gross sclerotic or lytic lesion. Mild degenerative changes of the shoulder. Visualized portions of the elbow are grossly unremarkable. Visualized right-sided ribs and lung parenchyma are unremarkable. XR/XR humerus RT IMPRESSION: Unremarkable right humerus.
[2021-10-26 13:41] LABS: Alanine Aminotransferase 9 U/L (0-40); Albumin Level 4.1 g/dL (3.5-5.0); Alkaline Phosphatase 93 U/L (39-117); Anion Gap 14 (12-20); Aspartate Amino Transferase 9 U/L (5-37); Bilirubin Total 0.5 mg/dL (0.0-1.0); Blood Urea Nitrogen 10 mg/dL (9-16); C Reactive Protein 2.08 mg/dL (< or = 0.50); Calcium 9.5 mg/dL (8.4-10.2); Carbon Dioxide 30 mmol/L (22-29); Chloride 101 mmol/L (96-108); Estimated Glomerular Filt Rate > 60; Glucose Random 85 mg/dL (60-115); Potassium 4.8 mmol/L (3.3-5.1); Sodium 140 mmol/L (135-145); Total Protein 6.3 g/dL (6.5-8.0)
== END 2021-10-26 10:58 | disposition home or self-care (01) ==
LOC: HO.LAB 10:57
PROVIDERS: PCP Internal Medicine; Visit Provider Internal Medicine
DX: G35 Multiple sclerosis (principal); M79.601 Pain in right arm
CPT/HCPCS: 36415; 73060; 80053; 82550; 86140

== ENCOUNTER 2022-04-10 12:20 | Outpatient (REF) | payer MEDICARE, SELFPAY ==
[2022-04-10 14:57] LABS: Alanine Aminotransferase 17 U/L (0-40); Albumin Level 4.3 g/dL (3.5-5.0); Alkaline Phosphatase 110 U/L (39-117); Aspartate Amino Transferase 14 U/L (5-37); Bilirubin Direct 0.2 mg/dL (0.0-0.5); Bilirubin Total 0.4 mg/dL (0.0-1.0); Total Protein 6.5 g/dL (6.5-8.0)
[2022-04-11 12:14] LABS: HBS Num1 3.78 mIU/mL (0-7.99); HBc Num1 0.04 S/CO (0.00-0.79); Hepatitis B Core Antibody Nonreactive (Nonreactive); Hepatitis B Surface Antigen Negative (Negative); ~HepC Num1 0.06 S/CO (0.00-0.79); ~Hepatitis B Surface Antibody NONREACTIVE (Nonreactive); ~Hepatitis C Antibody Nonreactive (Nonreactive)
[2022-04-12 14:56] LABS: IgA 209 mg/dL (47-310); IgG 457 mg/dL (600-1640); IgM 29 mg/dL (50-300)
[2022-04-12 15:51] LABS: Hepatitis A Antibody IgM 0.17 Index (0-0.79); ~Hepatitis A Antibody IgM Nonreactive (Nonreactive)
== END 2022-04-10 12:21 | disposition home or self-care (01) ==
LOC: HO.LAB 12:20
PROVIDERS: PCP Internal Medicine; Visit Provider Psychiatry & Neurology Neurology
DX: G35 Multiple sclerosis (principal)
CPT/HCPCS: 36415; 80076; 82784; 86334; 86704; 86706; 86709; 86803; 87340

== ENCOUNTER 2023-01-06 14:18 | Outpatient (AMB) | payer MEDICARE, SELFPAY ==
--- NOTE | 2023-01-06 14:36 | A.OFFPC_ITS ---
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 Allergies clarithromycin [From BIAXIN] Allergy (Unknown, Verified 01/06/23 14:42) UNKNOWN glatiramer (copolymer 1) [From COPAXONE] Allergy (Unknown, Verified 01/06/23 14:42) UNKNOWN interferon beta-1b [From BETASERON] Allergy (Unknown, Verified 01/06/23 14:42) UNKNOWN omeprazole [From PRILOSEC] Allergy (Unknown, Verified 01/06/23 14:42) UNKNOWN Medication List - Last Reconciled 01/06/23 by ENEIDA Rinaldi amitriptyline 150 mg PO BEDTIME ergocalciferol (vitamin D2) (Vitamin D2) 1,250 mcg PO QWEEK oxybutynin chloride ER 15 mg PO DAILY Tobacco use date assessed: 01/06/23 Dental Screening Dental Screen Date: 01/06/23 Did you have a dental visit in the last 12 months?: No Did you have a dental problem in the last 6 months where you did not have access to dental care?: No Was dental information given to patient?: No HPI 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 Will order labs. Pt had a previous colon screen (according to pt), will track down notes. Pt has a hx of MS and dementia. He is following up with neurology in February. Due for PSA, will order. Denies dribbling with urination, weak stream, and nocturia. Pt has a family hx of prostate cancer, father and brother. 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 Hx of vitamin D deficiency. Will order labs. [facility] Medical History Alcohol dependence Multiple sclerosis Family History (Updated 01/06/23 @ 15:05 by ENEIDA Rinaldi) Brother Mental health disorder Social History Household Members: None Housing: Apartment Do you presently have visiting nurse or other home services: No Patient Tobacco Use Status: Former Tobacco user Cigarettes Per Day: 20 e-Cigarette/Vaping Use: Currently Using Second Hand Smoke Exposure: No service: No Current occupational status: disabled Questionnaire PHQ-9 Over the last 2 weeks, how often have you been bothered by any of the following problems? 1. Little interest or pleasure in doing things: nearly every day 2. Feeling down, depressed, or hopeless: nearly every day 3. Trouble falling or staying asleep, or sleeping too much: more than half the days 4. Feeling tired or having little energy: more than half the days 5. Poor appetite or overeating: more than half the days 6. Feeling bad about yourself - or that you are a failure or have let yourself o r your family down: several days 7. Trouble concentrating on things, such as reading the newspaper or watching television: nearly every day 8. Moving or speaking so slowly that other people could have noticed. Or the opposite - being so fidgety or restless that you have been moving around a lot more than usual: several days 9. Thoughts that you would be better off or of hurting yourself in some way: several days Total score: 18 Depression Screening Interpretation: Positive Depression Screening Follow-up: Declines treatment 20629 - PHQ-9 Billing: Yes Source: Developed by Drs. Charles Maher, Bibiana Urban, Dorian Rocha and colleagues, with an educational rory from [employer]. Thrive Questionnaire Date Thrive assessed: 01/06/23 I am a: Patient What is your living situation today?: I have a steady place to live Within the past 12 months, did the food you bought not last and you didn't have the money to get more?: Never true Within the past 12 months, did you worry whether your food would run out before you got money to buy more?: Never true Do you have trouble paying for medicines?: No Do you have trouble getting transportation to medical appointments?: No Do you have trouble paying your heating and electricity bill?: No Do you have trouble taking care of your child, family member or friend?: No Do you have trouble with day-to-day activities such as bathing, preparing meals, shopping, managing finances, etc.?: Yes Are you currently unemployed and looking for a job?: No Are you interested in more education?: No Currently or been in a relationship where the following occur: no concerns reported INDU-7 AMB Questionnaire INDU-7 Date INDU - 7 assessed: 01/06/23 Feeling nervous, anxious, or on edge: 1 = Several days Not being able to stop or control worryin = Not at all Worrying too much about different things: 0 = Not at all Trouble relaxin = Nearly every day Being so restless that it is hard to sit still: 1 = Several days Becoming easily annoyed or irritable: 3 = Nearly every day Feeling afraid as if something awful might happen: 0 = Not at all Total INDU-7 score (0-4 normal; 5-9 mild; 10-14 moderate; 15-21 severe): 8 Source: Developed by Drs. Charles Maher, Bibiana Urban, Dorian Rocha and colleagues, with an educational rory from [employer]. INDU-7 Assessment Billing INDU-7 Assessment Tool: INDU-7 Assessment 93011 Review of Systems Const Denies chills and Denies fever(s) Eyes Denies blurry vision ENT Denies vertigo, Denies dizziness and Denies sore throat Card Denies chest pain at rest, Denies chest pain with activity, Denies diaphoresis, Denies dyspnea and Denies dyspnea on exertion Resp Denies cough, Denies dyspnea, Denies dyspnea on exertion and Denies wheezing GI Denies abdominal pain, Denies melena, Denies hematochezia, Denies constipation, Denies diarrhea and Denies loose stools Denies hematuria Musc Denies numbness and Denies tingling Skin/Breast Denies lesions Neuro Denies vertigo, Denies dizziness, Denies numbness and Denies tingling Psych Denies anxiety, Denies depression, Denies homicidal ideation, Denies suicidal ideation and Denies other (substance abuse) Aller/Immun Denies wheezing Physical exam (Primary Care) Vital Signs: Last Vital Signs Pulse 113 H 01/06/23 14:38 BP 114/60 01/06/23 14:38 Pulse Ox 96 01/06/23 14:38 Oxygen Delivery Method Room Air 01/06/23 14:38 BMI result Body Mass Index 25.6 Tobacco/Smoking Status: Tobacco use Status Tobacco use date assessed 01/06/23 01/06/23 14:48 Patient Tobacco Use Status Former Tobacco user 01/06/23 14:48 e-Cigarette/Vaping Use Currently Using 01/06/23 14:48 PHQ-9: PHQ-9 Score PHQ-9: Total score 18 01/06/23 15:07 Depression Screening Interpretation: Positive Depression Screening Follow-up: Declines treatment Thrive Assessment: Date of Thrive Assessment Date Thrive assessed 01/06/23 01/06/23 14:59 Currently or been in a relationship where the following occur: no concerns reported Const General: cooperative Nutritional Appearance: well nourished Orientation/consciousness: patient oriented x3 Limitations: ambulation with walker HENMT Head: Yes normal to inspection, Yes normocephalic and Yes atraumatic Ears: TM's normal bilaterally Eyes General: appearance normal, both eyes and all related structures Alignment and Position: alignment normal and position normal Neck Neck: Yes normal visual inspection and Yes no lymphadenopathy Thyroid: Thyroid normal Resp Effort & Inspection: normal respiratory effort Auscultation: clear to auscultation bilaterally Cardio Rate: tachycardic Rhythm: regular rhythm Heart sounds: S1 normal heart sound present, S2 normal heart sound present and no murmurs GI Palpation (GI): Soft to palpation and nontender Auscultation: normal bowel sounds Other: prostate difficult to palpated, not enlarged, no nodules palpated Male General Exam: Yes normal external exam Penis: normal penis Scrotum: scrotum normal, testes descended bilaterally and no inguinal hernias Testes: no testicular mass Skin Rashes: no rashes Neuro General: patient oriented x3 Romberg Test: Negative Extrem Other: lower extremities rigid, abnormal gait, uses walker Psych Appearance: grossly normal Mental Status: mental status grossly normal Speech and movement: Normal speech and movement present Affect: normal affect Attitude: cooperative Thought process: Normal thought process present Thought content: Normal thought content present Insight: Good insight present (Psych) Judgement: Good judgement present (Psych) Assessment and Plan Assessment & Plan (1) Physical exam: Code(s): Z00.00 - Encounter for general adult medical examination without abnormal findings Plan: Labs ordered (2) Screening for prostate cancer: Code(s): Z12.5 - Encounter for screening for malignant neoplasm of prostate Plan: PSA ordered (3) Vitamin D deficiency: Code(s): E55.9 - Vitamin D deficiency, unspecified Plan: Labs ordered Plan The patient agreed to the use of a medical staff director for this encounter. Scribed for ENEIDA Mathews by Mignon Prajapati medical staff director, on 01/06/2023 at 14:50 EST. Orders: Orders Comprehensive [place]. Panel Fast Today Z00.00 - Encounter for general adult medical examination without abnormal findings Lipid Panel Today Z00.00 - Encounter for general adult medical examination without abnormal findings TSH reflex Free T4 Today Z00.00 - Encounter for general adult medical examination without abnormal findings Complete Blood Count Auto Diff Today Z00.00 - Encounter for general adult medical examination without abnormal findings UA CC w/rflx Micro + Cult Today Z00.00 - Encounter for general adult medical examination without abnormal findings Prostate Specific Antigen Scr Today Z12.5 - Encounter for screening for malignant neoplasm of prostate Vitamin D 25-OH Total Today E55.9 - Vitamin D deficiency, unspecified AMB EKG-In Office Today Z00.00 - Encounter for general adult medical examination without abnormal findings Coding Level of Care Code New Pt Level 3 (94766) Diagnoses Physical exam Z00.00 Screening for prostate cancer Z12.5 Vitamin D deficiency E55.9 Additional Codes INDU-7 Assessment Billing - INDU-7 Assessment Tool: INDU-7 Assessment 36127 ([id number])
[2023-01-06 14:38] VITALS: BP 114/60; PULSE 113; O2SAT 96; BMI 25.6
== END 2023-01-06 15:48 | disposition home or self-care (01) ==
PROVIDERS: Visit Provider Nurse Practitioner Family
DX: E55.9 Vitamin D deficiency, unspecified (principal); G35 Multiple sclerosis; Z12.5 Encounter for screening for malignant neoplasm of prostate
CPT/HCPCS: 99203

== ENCOUNTER 2023-02-19 13:06 | Outpatient (REF) | payer MEDICARE, SELFPAY ==
[2023-02-19 16:00] LABS: MANUAL DIFF FLAG NO
[2023-02-19 16:09] LABS: Basophils Percent Auto 0.5 % (0-2); Eosinophils Absolute Auto 0.2 X10*3/uL (0.0-0.4); Eosinophils Percent Auto 3.2 % (0-4); Hematocrit 48.7 % (42.0-52.0); Hemoglobin 16.1 g/dl (14.0-18.0); Imm Gran Abs Auto 0.03 X10*3/uL (0.00-0.03); Imm Gran Pct Auto 0.5 % (0.0-0.4); Lymphocytes Absolute Auto 1.6 X10*3/uL (1.2-4.9); Lymphocytes Percent Auto 27.6 % (20-40); Mean Corpuscular HGB Conc 33.1 g/dl (31.0-36.0); Mean Corpuscular Hemoglobin 27.8 pg (27.0-33.0); Mean Corpuscular Volume 84.1 fL (80.0-98.0); Mean Platelet Volume 10.2 fL (9.4-12.4); Monocytes Absolute Auto 0.4 X10*3/uL (0.1-1.2); Monocytes Percent Auto 7.7 % (2-11); Neutrophils Absolute Auto 3.4 x10*3/uL (2.0-8.3); Neutrophils Percent Auto 60.5 % (45-73); Platelet Count 399 X10*3/uL (160-400); Red Blood Count 5.79 X10*6/uL (4.60-5.80); Red Cell Distribution Width 13.2 % (11.0-16.0); White Blood Count 5.6 X10*3/uL (4.8-10.8)
[2023-02-19 16:22] LABS: Alanine Aminotransferase 7 U/L (0-40); Albumin Level 4.1 g/dL (3.5-5.0); Alkaline Phosphatase 105 U/L (39-117); Aspartate Amino Transferase 11 U/L (5-37); Bilirubin Direct 0.1 mg/dL (0.0-0.5); Bilirubin Total 0.5 mg/dL (0.0-1.0); Blood Urea Nitrogen 11 mg/dL (9-16); Estimated Glomerular Filt Rate > 60; Total Protein 6.7 g/dL (6.5-8.0)
[2023-02-21 15:48] LABS: Immunoglobulin A 219 mg/dL (47-310); Immunoglobulin G 487 mg/dL (600-1640); Immunoglobulin M 34 mg/dL (50-300)
== END 2023-02-19 13:07 | disposition home or self-care (01) ==
LOC: HO.HMGCLDS 13:06
PROVIDERS: Absent Provider Physician Assistant; PCP Nurse Practitioner Family; Visit Provider Nurse Practitioner Family
DX: G35 Multiple sclerosis (principal); Z79.899 Other long term (current) drug therapy
CPT/HCPCS: 36415; 80076; 82565; 82784; 84520; 85025

== ENCOUNTER 2024-01-14 11:00 | Outpatient (AMB) | payer MEDICARE, SELFPAY ==
[2024-01-14 11:01] VITALS: BP 114/72; PULSE 105; O2SAT 98; BMI 25.7
--- NOTE | 2024-01-14 11:01 | A.OFFVIS_ITS ---
Vital Signs 01/14/24 11:01 Height 5 ft 7 in Weight 164 lb BMI 25.7 BP 114/72 Blood Pressure Location Rt brachial Position Sitting Pulse 105 H Pulse Source Pulse Oximeter Pulse Oximetry (%) 98 Oxygen Delivery Method Room Air Intake Visit Reasons: HOE-Wouvff-OMBU Intake Note: Patient presents for MS Allergies clarithromycin [From BIAXIN] Allergy (Unknown, Verified 01/14/24 11:03) UNKNOWN glatiramer (copolymer 1) [From COPAXONE] Allergy (Unknown, Verified 01/14/24 11:03) UNKNOWN interferon beta-1b [From BETASERON] Allergy (Unknown, Verified 01/14/24 11:03) UNKNOWN omeprazole [From PRILOSEC] Allergy (Unknown, Verified 01/14/24 11:03) UNKNOWN Medication List - Last Reconciled 01/14/24 by Batsheva Campos, MONCHO amitriptyline 150 mg PO BEDTIME aspirin 81 mg PO DAILY ergocalciferol (vitamin D2) (Vitamin D2) 1,250 mcg PO QWEEK oxybutynin chloride ER 15 mg PO DAILY HPI Comments Details: Right-handed 53-yr-old male presents for neurological evaluation of suspected TIA in Feb 2023 in setting of PMH of MS, depression/anxiety, urinary retention, tremor. Seizure is listed as dx in chart however pt denies h/o seizure. Pt is accompanied by his caregiver/HCP, Padmini. Pt is apoor historian, history obtained from pt, anastacia, and review of [facility] and [facility] records. Pt reports in Feb 2023, he had sudden onset of left-sided facial droop, left arm paralysis, left gaze deviation, blurry vision, dysarthria, mild chest pressure. His caregiver called 911 and pt was brought to [facility]. All neuro s/s had resolved by the time pt arrived in the ER. The chest pressure resolved while in the ER. Per ER note- pt denied any precipitating causes. Work-up was non-acute: CT head- no acute pathology; CT angio head and neck-no LVO in the intracranial or extracranial arteries, MRI brain w/wo- no acute or subacute infarction, extensive FLAIR hyperintensities in the supratentorial infratentorial white matter, with no enhancing lesions. Dx- presumed TIA. Pt was advised to start ASA 81mg qd- he states he is compliant w/ ASA. Pt has not yet had cardiology eval. Pt states his MS was dx'd ~10 yrs ago, started as RUE paresthesias. Initially dx'd by Dr Farias, and is now f/b the [facility]. He states he states his current DMT is Ocreveus x's past 3 yrs. Pt endorses intermittent tremor, states this is not bothersome to him. [facility] Medical History (Updated 03/31/23 @ 17:19 by Pop Navarro, [facility]) Alcohol dependence Multiple sclerosis Surgical History (Updated 01/14/24 @ 11:05 by MEY Hopkins) H/O hernia repair H/O colonoscopy Family History Brother Mental health disorder Social History Household Members: None Housing: Apartment Do you presently have visiting nurse or other home services: No Comment: sleeping Patient Tobacco Use Status: Former Tobacco user Cigarettes Per Day: 20 e-Cigarette/Vaping Use: Currently Using Second Hand Smoke Exposure: No service: No Current occupational status: disabled Review of Systems Const All systems reviewed & are unremarkable except as noted in HPI and below Physical Exam Vital Signs: Last Vital Signs Pulse 105 H 01/14/24 11:01 BP 114/72 01/14/24 11:01 Pulse Ox 98 01/14/24 11:01 Oxygen Delivery Method Room Air 01/14/24 11:01 BMI result Body Mass Index 25.7 Const General: cooperative and no acute distress HEENT Head: Yes normocephalic Resp Effort & Inspection: normal respiratory effort and able to speak in complete sentences Skin Other: Left antecubital dry rash Dry flaky skin. Neuro Other: A&O w/ STM lapses Mild intermittent UE postural tremor. BUE MIKE-- poor BUE finger-nose- dysmetria, more so on left FFM and Foot taps- poor fluidity, more so on left Stands slowly, wide based, with short quick steps, overall steady w/ walker. General: CN's II-XI intact bilaterally and deep tendon reflexes 2+ bilaterally Gait exam (Neuro): Normal gait present Motor exam (neuro): 5/5 motor strength present throughout Psych Speech and movement: Clear speech present Affect: normal affect Attitude: cooperative Results Reviewed Results Reviewed: 03/20/23 01:27 Cholesterol 156 Triglycerides 104 HDL Cholesterol 54 LDL Cholesterol 81 Non HDL Cholesterol 102 03/19/2023 RESULT: MRI Brain W+W/O Contrast MRI Brain W+W/O Contrast INDICATION / CLINICAL QUESTION: Reason: TIA; Clinical Question(s): Infarction; MS; Order Comment: Please see Reference Text for complete list of contraindications Infarction TECHNIQUE: MRI of the brain was performed with and without contrast utilizing sagittal and axial T1, axial T2, axial FLAIR, sagittal FLAIR, and axial DWI sequences, and post-contrast 3D T1 [place] with multiplanar reformats. 18 mL of Clariscan was administered intravenously. COMPARISON: Head CT 03/19/2023. FINDINGS: BRAIN and EXTRA-AXIAL SPACES: The ventricles and sulci are globally prominent reflecting volume loss. There are extensive foci of FLAIR hyperintensity throughout the juxtacortical, deep, and periventricular white matter as well as in the posterior fossa involving the jessica, middle cerebellar peduncles, and possibly the left lateral ventral medulla. Lesions involve the corpus callosum. There is no restricted diffusion or abnormal enhancement. There is no acute or subacute infarction, hemorrhage, midline shift, or mass effect. There is no extra-axial collection. Flow voids are preserved in the dominant intracranial vessels. EXTRACRANIAL SOFT TISSUES: Orbits are unremarkable. Paranasal sinuses and mastoids are unremarka ble. BONES: Marrow signal is preserved. IMPRESSION: No acute intracranial abnormality. No evidence of acute or subacute infarction. Extensive FLAIR hyperintensities in the supratentorial and infrate ntorial white matter, with no enhancing lesions to indicate an active demyelinating process. 03/19/2023 RESULT: CT Angio Head Hyperacute Stroke CT Angio Head Hyperacute Stroke, CT Angio Neck Hyperacute Stroke Reason: Other:; Stroke; Clinical Question(s): Other:; Hematoma Aneurysm / Other: TECHNIQUE: CT angiogram of the head and neck was performed after bolus administration of intravenous contrast. 100 mL of Omnipaque 300 was administered intravenously. Coronal and sagittal MIP reformatted images were obtained. Additional 3-D images were created on a separate workstation under concurrent supervision by the attending radiologist. All stenoses are measured using NASCET criteria. Weight- based protocol using automatic tube modulation was used to optimize exposure parameters. RADIATION DOSE PARAMETERS: CTDIvol Body: 11.40 mGy, DLP Body: 570 mGy*cm. CTDIvol Head: 45.70 mGy, DLP Head: 773 mGy*cm. COMPARISON: Noncontrast CT head performed concurrently. FINDINGS: There is a 3 vessel arch which has mural calcified and noncalcified atherosclerotic plaques are seen along the visualized aortic arch. The supraaortic proximal great neck vessels appear normal in caliber and appearance. No hemodynamically significant stenosis. The right common carotid artery is normal in caliber. The right carotid bulb is normal. Mild mural calcifications are seen at the right proximal internal carotid artery. The right proximal ICA shows 0% stenosis by NASCET criteria. The left common carotid artery is normal in caliber. The left carotid bulb is normal. Mild mural calcifications are seen at the left proximal internal carotid artery. The left proximal ICA shows 0% stenosis by NASCET criteria. Right vertebral artery: Slightly dominant. Mild stenosis is seen at the proximal V2 segment due to noncalcified mural thrombus. The rest is patent without stenosis. Left vertebral artery: Patent without stenosis. Cervical spine: No acute pathology. Spondylosis at C6-C7 level. Soft tissues and lung apices: The visualized upper lungs are clear. Bilateral thyroid lobes are normal. There is no definite abnormality throughout the soft tissue neck. [place]: Concurrent CT of head showed no acute pathology. Generalized volume loss and bilateral periventricular hypodensities are noted. Bilateral internal carotid arteries at the skull base have minimal mural calcifications. No definite st enosis is seen. The left posterior communicating artery is faintly visualized. A tiny infundibulum is seen at origin of the left posterior communicating artery . No aneurysm is seen. Bilateral ACAs, MCAs and their branches are patent. No stenosis or vessel cut off is seen. No definite aneurysm is noted. Bilateral intracranial vertebral arteries show no definite stenosis. The vertebrobasilar junction is normal. The basilar artery is normal. No stenosis or dissection is seen. There is no basilar tip aneurysm. Bilateral painting worker and their branches are patent. The superior sagittal sinuses, the straight sinus, bilateral transverse and sigmoid sinuses: Patent without dural sinus thrombosis. IMPRESSION: No cutoff or high-grade stenosis of the major branches of the intracranial arteries. No aneurysm, stenosis, or vascular malformations present. The right proximal internal carotid artery show no significant stenosis by NASCET criteria. The left proximal internal carotid artery show no significant stenosis by NASCET criteria. The right cervical vertebral artery shows no significant stenosis. The left cervical vertebral artery shows no significant stenosis. Assessment & Plan Assessment & Plan (1) TIA (transient ischemic attack): Code(s): G45.9 - Transient cerebral ischemic attack, unspecified Category: Medical (2) Multiple sclerosis: Code(s): G35 - Multiple sclerosis Category: Medical Plan Continue ASA 81mg qd BP normotensive. Lipids- WNL. Will request cardiology consult to complete probable TIA work-up. Pt may continue to f/u w/ the [facility] clinic for management of his MS and neuro s/s, however if the [facility] would like us to co-manage pt's TIA and/or movement s/s, we would be happy to participate in his care. Pt may benefit from dermatology consult for rash and dry flaking skin- will defer to PCP. f/u here prn. Pt seen in c/w Dr Rylee Dumont. Orders: Referrals Cardiology Referral G45.9 - Transient cerebral ischemic attack, unspecified Coding Level of Care Code New Pt Level 4 (07283) Diagnoses TIA (transient ischemic attack) G45.9 Multiple sclerosis G35
== END 2024-01-14 12:19 | disposition home or self-care (01) ==
PROVIDERS: PCP Nurse Practitioner Family; Visit Provider Nurse Practitioner Family
DX: G45.9 Transient cerebral ischemic attack, unspecified (principal); G35 Multiple sclerosis
CPT/HCPCS: 99204

== ENCOUNTER → 2024-01-14 11:00 | Outpatient (BNVA) | payer MEDICARE, SELFPAY | PROVIDERS: PCP Nurse Practitioner Family; Visit Provider Nurse Practitioner Family | DX: G35 Multiple sclerosis (principal); Z86.73 Personal history of transient ischemic attack (TIA), and cerebral infarction without residual deficits | CPT/HCPCS: 99202 ==

== ENCOUNTER 2024-02-12 10:48 | Outpatient (AMB) | payer MEDICARE, SELFPAY ==
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
[2024-02-12 10:52] VITALS: BP 118/70; PULSE 110; O2SAT 95; BMI 25.4
== END 2024-02-12 14:24 | disposition home or self-care (01) ==
PROVIDERS: PCP Nurse Practitioner Family; Visit Provider Nurse Practitioner Family
DX: F41.9 Anxiety disorder, unspecified (principal); Z12.5 Encounter for screening for malignant neoplasm of prostate; F17.200 Nicotine dependence, unspecified, uncomplicated; R00.0 Tachycardia, unspecified; T74.11XA Adult physical abuse, confirmed, initial encounter

== ENCOUNTER → 2024-02-12 10:48 | Outpatient (BNVA) | payer MEDICARE, SELFPAY | PROVIDERS: PCP Nurse Practitioner Family; Visit Provider Nurse Practitioner Family | DX: F41.9 Anxiety disorder, unspecified (principal); R00.0 Tachycardia, unspecified; T74.11XA Adult physical abuse, confirmed, initial encounter; F17.200 Nicotine dependence, unspecified, uncomplicated | CPT/HCPCS: 96127; 99212 ==

== ENCOUNTER 2024-03-17 11:21 | Outpatient (REF) | payer MEDICARE, SELFPAY ==
[2024-03-17 13:25] LABS: MANUAL DIFF FLAG NO
[2024-03-17 13:38] LABS: Basophils Absolute Auto 0.1 X10*3/uL (0.0-0.2); Basophils Percent Auto 0.7 % (0-2); Eosinophils Percent Auto 0.1 % (0-4); Hematocrit 46.3 % (42.0-52.0); Hemoglobin 15.4 g/dl (14.0-18.0); Imm Gran Abs Auto 0.01 X10*3/uL (0.00-0.03); Imm Gran Pct Auto 0.1 % (0.0-0.4); Lymphocytes Absolute Auto 1.8 X10*3/uL (1.2-4.9); Lymphocytes Percent Auto 25.5 % (20-40); Mean Corpuscular HGB Conc 33.3 g/dl (31.0-36.0); Mean Corpuscular Hemoglobin 28.4 pg (27.0-33.0); Mean Corpuscular Volume 85.4 fL (80.0-98.0); Mean Platelet Volume 10.3 fL (9.4-12.4); Monocytes Absolute Auto 0.5 X10*3/uL (0.1-1.2); Monocytes Percent Auto 7.5 % (2-11); Neutrophils Absolute Auto 4.6 x10*3/uL (2.0-8.3); Neutrophils Percent Auto 66.1 % (45-73); Platelet Count 321 X10*3/uL (160-400); Red Blood Count 5.42 X10*6/uL (4.60-5.80); Red Cell Distribution Width 14.2 % (11.0-16.0)
[2024-03-17 14:07] LABS: Alanine Aminotransferase 16 U/L (0-40); Albumin Level 4.2 g/dL (3.5-5.0); Alkaline Phosphatase 91 U/L (39-117); Anion Gap 12 (12-20); Aspartate Amino Transferase 22 U/L (5-37); Bilirubin Total 0.3 mg/dL (0.0-1.0); Blood Urea Nitrogen 14 mg/dL (9-16); Calcium 9.5 mg/dL (8.4-10.2); Carbon Dioxide 30 mmol/L (22-29); Chloride 105 mmol/L (96-108); Cholesterol 199 mg/dL (<200); Estimated Glomerular Filt Rate > 60; Glucose Fasting 96 mg/dL (60-99); HDL Cholesterol 51 mg/dL (>40); LDL Cholesterol Calculated 125 mg/dL (<100); Potassium 4.2 mmol/L (3.3-5.1); Sodium 143 mmol/L (135-145); Total Protein 6.4 g/dL (6.5-8.0); Triglycerides 116 mg/dL (<150)
[2024-03-17 14:11] LABS: TSH reflex Free T4 0.26 uIU/mL (0.32-4.0)
[2024-03-17 14:52] LABS: Free T4 (Free Thyroxine) 0.99 ng/dL (0.71-1.85)
== END 2024-03-17 11:22 | disposition home or self-care (01) ==
LOC: HO.HMGCLDS 11:21
PROVIDERS: PCP Nurse Practitioner Family; Visit Provider Nurse Practitioner Family
DX: F41.9 Anxiety disorder, unspecified (principal); Z12.5 Encounter for screening for malignant neoplasm of prostate
CPT/HCPCS: 36415; 80053; 80061; 84153; 84439; 84443; 85025

== ENCOUNTER 2024-03-17 17:30 | Outpatient (REF) | payer MEDICARE, SELFPAY ==
[2024-03-18 16:54] LABS: Appearance Urine Clear; Color Urine Dark Yellow; Glucose Urine UA Negative (Negative); Leukocyte Esterase Urine Negative (Negative); Nitrite Urine Negative (Negative); Urine Blood Negative (Negative); Urine Ketones Trace mg/dL (Negative); Urine Protein Negative (Neg-Trace)
== END 2024-03-17 17:31 | disposition home or self-care (01) ==
LOC: HO.HMGCLNP 17:30
PROVIDERS: PCP Nurse Practitioner Family; Visit Provider Nurse Practitioner Family
DX: F41.9 Anxiety disorder, unspecified (principal)
CPT/HCPCS: 81003

== ENCOUNTER 2024-03-30 14:13 | Outpatient (REF) | payer MEDICARE, SELFPAY ==
[2024-03-30 16:58] LABS: TSH reflex Free T4 0.71 uIU/mL (0.32-4.0)
== END 2024-03-30 14:14 | disposition home or self-care (01) ==
LOC: HO.HMGCLDS 14:13
PROVIDERS: PCP Nurse Practitioner Family; Visit Provider Nurse Practitioner Family
DX: R79.89 Other specified abnormal findings of blood chemistry (principal)
CPT/HCPCS: 36415; 84443

== ENCOUNTER 2024-04-09 10:24 | Outpatient (AMB) | payer MEDICARE, SELFPAY ==
--- NOTE | 2024-04-09 07:50 | A.OFFVIS_ITS ---
Intake Visit Reasons: Former Smoker Allergies clarithromycin [From BIAXIN] Allergy (Unknown, Verified 02/12/24 10:53) UNKNOWN glatiramer (copolymer 1) [From COPAXONE] Allergy (Unknown, Verified 02/12/24 10:53) UNKNOWN interferon beta-1b [From BETASERON] Allergy (Unknown, Verified 02/12/24 10:53) UNKNOWN omeprazole [From PRILOSEC] Allergy (Unknown, Verified 02/12/24 10:53) UNKNOWN HPI HPI Former Smoker: Details: Initial visit for this 53yo former smoker with a 30PYH. Patient started smoking at age 11 for 40 years at max 1ppd. he quit smoking 2 years ago in 2021. . Denies marijuana use. Denies second hand smoke exposure. Denies exposure to chemicals or substances like asbestos. . Denies known family history of lung cancer. Denies personal history of cancers. Denies chest CT in last year. . Denies recent travel outside the [place]. Denies recent respiratory illness or recent hospitalization for respiratory issues. Denies testing positive for COVID. Admits receiving COVID Vaccine. . Denies fever, chills, new/worsening cough, hemoptysis, hoarseness or dysphagia. Denies significant chest pain, significant dyspnea or unintentional weight loss. Patient Lung Cancer Screening Questionnaire reviewed with patient by provider. . Shared Decision Making Completed. Patient meets criteria. Discussed in detail with patient, the risk vs benefit of LDCT screening. Patient consents to proceed with scan. Discussed and encouraged continued smoking cessation. [facility] Medical History (Updated 04/09/24 @ 10:39 by Selene Valles PA-C) Multiple sclerosis History of TIA (transient ischemic attack) Alcohol dependence Tubular adenoma of colon Personal history of nicotine dependence Surgical History (Updated 03/22/24 @ 16:16 by Selene Valles PA-C) History of surgery on right wrist History of colonoscopy History of hernia repair Family History (Updated 04/09/24 @ 10:41 by Selene Valles PA-C) Brother Mental health disorder Prostate cancer Father Prostate cancer Social History (Updated 04/09/24 @ 10:39 by Selene Valles PA-C) Household Members: None Housing: Apartment Do you presently have visiting nurse or other home services: No Comment: sleeping Patient Tobacco Use Status: Former Tobacco user Years Smoked: (onset 11yo, 1ppd x 40yrs, 30+pyh, quit 2021) e-Cigarette/Vaping Use: Currently Using Second Hand Smoke Exposure: No service: No Current occupational status: disabled Assessment & Plan Assessment & Plan (1) Personal history of nicotine dependence: Comment: (onset 11yo, 1ppd x 40yrs, 30+pyh, quit 2021) Code(s): Z87.891 - Personal history of nicotine dependence Category: Medical Plan: - SDM visit completed today in office. - Patient meets criteria for LDCT for lung cancer screening purposes and is asymptomatic. - Smoking cessation counseling offered. Patients can always call [phone]. - Will arrange for a LDCT scan of the chest for screening purposes at [facility]. - Risks, benefits, and alternatives were discussed in detail and the patient agrees to proceed. - Risks discussed include but are not limited to: radiation exposure, anxiety during testing and while awaiting results, false negatives, false positives and possibility of additional intervention such as further imaging or surgical procedures for benign disease. - Benefits are obviously detection of lung cancer at an early stage which can lead to improved outcomes. - Discussed the importance of screening program compliance with adherence to yearly LDCT scan as scheduled - or sooner interval scans for personalized screening regimen. - Discussed follow up plan. Our office will send a letter discussing results and if needed set up phone call and office visit based on CT findings. - Patient educated on results categorization and the management decisions for suspicious findings potentially found on the screening LDCT scan. Any patient with a Lung RADS score of 3 or 4 will be reviewed by a multidisciplinary team at [facility] to form a plan of action in regards to scan findings. - If further work up is warranted for a suspicious lung finding this will be followed by the Lung Cancer Screening program in conjunction with the Thoracic Surgery Department at [facility]. - A copy of the office note and LDCT will be sent to the patient's PCP - as well as documentation on any associated further plans of care. - Incidental findings on LDCT are the PCP's responsibility. These findings are indicated with an S finding on the LDCT Assessment. A note discussing the findings will be sent to the PCP who is then responsible for further management. - All questions answered.? Coding Level of Care Code Lung Cancer Screening G0296 Diagnoses Personal history of nicotine dependence Z87.891
== END 2024-04-09 10:44 | disposition home or self-care (01) ==
PROVIDERS: PCP Nurse Practitioner Family; Visit Provider Physician Assistant Medical
DX: Z87.891 Personal history of nicotine dependence (principal)
CPT/HCPCS: G0296

== ENCOUNTER 2024-04-09 10:41 | Outpatient (REF) | payer MEDICARE, SELFPAY | END 2024-04-09 10:42 | disposition home or self-care (01) | LOC: HO.CT 10:41 | PROVIDERS: PCP Nurse Practitioner Family; Visit Provider Physician Assistant Medical | DX: Z12.2 Encounter for screening for malignant neoplasm of respiratory organs (principal); Z87.891 Personal history of nicotine dependence | CPT/HCPCS: 71271; G0296 ==

== ENCOUNTER → 2024-04-09 10:43 | Outpatient (BNV) | payer MEDICARE, SELFPAY | PROVIDERS: PCP Nurse Practitioner Family; Visit Provider Radiology Diagnostic Radiology | DX: R91.1 Solitary pulmonary nodule (principal); J43.2 Centrilobular emphysema | CPT/HCPCS: 71271 ==

== ENCOUNTER 2024-05-20 13:35 | Outpatient (AMB) | payer MEDICARE, SELFPAY ==
--- OUTSIDE RECORDS SUMMARY | 2024-05-20 13:38 | XMS_ITS ---
Author Name [facility] Organization Unknown History of Medication Use Medication Directions Dispensed Refills Start Date End Date Status sodium chloride 0.9% (NS) infusion 500 mL, Intravenous, Once, On Fri02/25/23 at 0900, For 1 doseAdminister at 999 mL/hr. 4 999 completed ergocalciferol (VITAMIN D2) capsule 34553 units Take 1 capsule (50,000 Units total) by mouth once a week. 4 999 active aspirin EC 81 MG tablet Take 1 tablet (81 mg total) by mouth daily. 4 active OXcarbazepine (TRILEPTAL) 150 MG tablet Take 1 tablet (150 mg total) by mouth 2 (two) times a day. 4 active diphenhydrAMINE (BENADRYL) injection 50 mg 50 mg, Intravenous, Once, On Fri08/26/23 at 1015, For 1 doseGive 30 minutes prior to ocrelizumab. IV push over 2-3 minutes.??See PO diphenhydramine order. Please give PO or IV.??Common Side Effects: Drowsiness, stomach upset, confusion, dry mouth.??Administer undiluted. Maximum rate 25 mg/min. 4 completed ergocalciferol (VITAMIN D2) capsule 45899 units TAKE 1 CAPSULE BY MOUTH ONE TIME PER WEEK 4 active amitriptyline (ELAVIL) tablet 25 mg Take 2 tablets (50 mg total) by mouth every night at bedtime. 4 active oxybutynin (DITROPAN-XL) 10 MG 24 hr tablet TAKE 1 TABLET BY MOUTH EVERY DAY 4 active methylPREDNISolone sodium succinate (SOLU-Medrol) injection 125 mg 125 mg, Intravenous, Once, On Fri08/26/23 at 1015, For 1 doseGive 30 minutes prior to ocrelizumab. ??Administer over 2-3 minutes 4 completed acetaminophen (TYLENOL) tablet 975 mg 975 mg, Oral, Once, On Fri08/26/23 at 1015, For 1 doseGive 30 minutes prior to ocrelizumab. 4 completed ocrelizumab (OCREVUS) 600 mg in sodium chloride (NS) 0.9 % 500 mL IVPB 600 mg, Intravenous, Once, On Fri08/26/23 at 1015, For 1 doseMust use in-line 0.22 micron filter. ??- Infusion Rate for first full 600 mg dose or reaction with previous infusion: Start at 40 mL/hr. Increase by 40 mL/hr every 30 minutes. Maximum rate: 200 mL/hr. Duration: 3.5 hours or longer.??- Infusi 4 completed Problems Problem Status Onset Date Problem Type Date of Resoluti on Source Multiple sclerosis active 2022-08-20 ProblemAct [id number]
[2024-05-20 13:50] VITALS: BP 118/60; PULSE 98; BMI 25.2
--- NOTE | 2024-05-20 13:50 | MHC.OFFVIS ---
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 Allergies clarithromycin [From BIAXIN] Allergy (Unknown, Verified 02/12/24 10:53) UNKNOWN glatiramer (copolymer 1) [From COPAXONE] Allergy (Unknown, Verified 02/12/24 10:53) UNKNOWN interferon beta-1b [From BETASERON] Allergy (Unknown, Verified 02/12/24 10:53) UNKNOWN omeprazole [From PRILOSEC] Allergy (Unknown, Verified 02/12/24 10:53) UNKNOWN Medication List - Last Reconciled 05/20/24 by Joaquim García MD amitriptyline 150 mg PO BEDTIME aspirin 81 mg PO DAILY ergocalciferol (vitamin D2) (Vitamin D2) 1,250 mcg PO QWEEK oxybutynin chloride ER 15 mg PO DAILY HPI Comments Details: Christopher was referred here for evaluation for possible TIA. 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 He is not able to provide much history. He has prior history of multiple sclerosis, currently on semi annual therapy through the IV not sure as to what he is taking currently. He has history of also seizure disorders and multiple falls in the past. Patient also has current history of smoking and was brought to the [facility] as per the WATCH ENGINE OPERATOR because of speech difficulties. He was told that he had TIA although imaging did not show any new ischemic lesions. The lesions consistent with multiple sclerosis. With the symptoms of very transient. He was referred here for further cardiac evaluation. Denies any cardiac symptoms. He is not sure as to why he is here. He was prescribed aspirin therapy since this event. [facility] Medical History Multiple sclerosis History of TIA (transient ischemic attack) Alcohol dependence Tubular adenoma of colon Personal history of nicotine dependence Surgical History History of surgery on right wrist History of colonoscopy History of hernia repair Family History Brother Mental health disorder Prostate cancer Father Prostate cancer Social History Household Members: None Housing: Apartment Do you presently have visiting nurse or other home services: No Alcohol intake: never Comment: sleeping Patient Tobacco Use Status: Former Tobacco user Years Smoked: (onset 11yo, 1ppd x 40yrs, 30+pyh, quit 2021) e-Cigarette/Vaping Use: Currently Using Second Hand Smoke Exposure: No service: No Current occupational status: disabled Review of Systems Const Denies weakness ENT Denies dizziness Card Denies chest pain, Denies chest pain with activity, Denies syncope, Denies rapid heart rate, Denies pedal edema, Denies edema, Denies leg edema, Denies lightheadedness, Denies palpitations, Denies dyspnea, Denies dyspnea on exertion and Denies orthopnea Resp Denies cough, Denies dyspnea and Denies dyspnea on exertion GI Denies hematochezia and Denies change in stool character Musc Denies abnormal gait, Denies muscle cramps, Denies muscle weakness, Denies numbness, Denies radiating pain into limb and Denies tingling Neuro Denies abnormal gait, Denies dizziness, Denies syncope, Denies numbness, Denies tingling and Denies weakness Endo Denies palpitations Physical Exam Vital Signs: Last Vital Signs Pulse 98 05/20/24 13:50 BP 118/60 05/20/24 13:50 BMI result Body Mass Index 25.2 Const General: cooperative, comfortable, no acute distress, alert, awake and poor hygiene Nutritional Appearance: average body habitus Limitations: ambulation with walker HEENT Head: Yes normocephalic and Yes atraumatic Neck Neck: Yes trachea midline, Yes supple and Yes no JVD Resp Effort & Inspection: decreased respiratory effort Auscultation: clear to auscultation bilaterally Cardio Jugular venous distension: no JVD Palpation: normal PMI Rate: regular rate Rhythm: regular rhythm Heart sounds: S1 normal heart sound present, S2 normal heart sound present, no click, no gallops, no murmurs and no rubs GI Auscultation: normal bowel sounds Skin General skin exam: no rashes or lesions noted Extrem General: Yes no clubbing, cyanosis or edema Office Procedures EKG Details: EKG shows normal sinus rhythm with normal EKG 01125-[id number], Complete Assessment & Plan Assessment & Plan (1) History of TIA (transient ischemic attack): Comment: (03/20/23 Left facial droop/left arm paralysis - admited to [facility] [place]) Code(s): Z86.73 - Personal history of transient ischemic attack (TIA), and cerebral infarction without residual deficits Category: Medical Plan: Patient with possible history of TIA although the symptoms resolved quickly. Question related to his underlying neurologic condition with multiple sclerosis. Although there is question raised for possible TIA. He has been started on aspirin therapy. At this point time from cardiac perspective would suggest echocardiogram with saline contrast as well as a 30 day event monitor to evaluate for any possible cardioembolic source. If these are within normal limits, but follow-up with neurology for further treatment plan. He has no evidence of intracranial extracranial vascular disease at this point time. Continue management of his multiple sclerosis through the Neurology team at [place]. Will follow up in the clinic if need be. Thank you for allowing me to partake in his care Orders: Orders CA echo transthoracic complete Today Z86.73 - Personal history of transient ischemic attack (TIA), and cerebral infarction without residual deficits ECG 30 day event monitor Today Z86.73 - Personal history of transient ischemic attack (TIA), and cerebral infarction without residual deficits Coding Level of Care Code New Pt Level 4 (12799) Complex EM visit Add On G2211 Diagnoses History of TIA (transient ischemic attack) Z86.73 CPT Codes EKG - CPT: 82807-[id number], Complete ([id number])
== END 2024-05-20 14:20 | disposition home or self-care (01) ==
PROVIDERS: PCP Nurse Practitioner Family; Visit Provider Internal Medicine Cardiovascular Disease
DX: Z86.73 Personal history of transient ischemic attack (TIA), and cerebral infarction without residual deficits (principal)
CPT/HCPCS: 93010; 99204; G2211

== ENCOUNTER → 2024-05-20 13:35 | Outpatient (BNVA) | payer MEDICARE, SELFPAY | PROVIDERS: PCP Nurse Practitioner Family; Visit Provider Internal Medicine Cardiovascular Disease | DX: Z86.73 Personal history of transient ischemic attack (TIA), and cerebral infarction without residual deficits (principal); Z87.891 Personal history of nicotine dependence; Z91.81 History of falling | CPT/HCPCS: 93005; 99202 ==

== ENCOUNTER → 2024-06-02 12:46 | Outpatient (REF) | payer MEDICARE, SELFPAY ==
--- NOTE | 2024-06-02 12:53 | CA_ITS ---
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 Study Quality: Fair/Contrast ECG Rhythm: Sinus Conclusions: - The left ventricular systolic function is mildly decreased. The visually estimated ejection fraction is between 45-50%. - Bubble study strongly positive during rest and valsalva, suggesting large interatrial shunt. - No obvious valvular pathology seen on this study. Findings Procedure Information Contrast agent, definity, is being given per protocol without apparent complications. Left Ventricle Normal left ventricular cavity size. There is normal left ventricular wall thickness. The left ventricular systolic function is mildly decreased. The visually estimated ejection fraction is between 45-50%. There is mild global hypokinesis. Diastolic function is normal for age. Right Ventricle Normal right ventricular cavity size and systolic function. Atria Both atria are normal in size. Bubble study strongly positive during rest and valsalva, suggesting large interatrial shunt. Aortic Valve There is a normal trileaflet aortic valve. There is no aortic valve stenosis. There is no aortic valve regurgitation. Mitral Valve The mitral valve appears normal. There is no mitral valve regurgitation. There is no mitral valve stenosis. Pulmonic Valve The pulmonic valve is likely normal. Tricuspid Valve There is trace tricuspid valve regurgitation. There is no evidence of pulmonary hypertension. Great Vessels The asc aorta and aortic arch are normal in size. Venous The inferior vena cava is normal in size and collapses greater than 50% with inspiration. Pericardium/Pleural There is no evidence of pericardial effusion. Prior Study Comparison No prior study available for comparison. Recommendations, Care & Conclusions No obvious valvular pathology seen on this study. Measurements 2D Linear Measurements IVSd: 0.96 0.6-0.9/0.6-1.0 cm LVIDd: 4.39 3.9-5.3/4.2-5.9 cm LVIDd Index: 2.39 2.4-3.2/2.2-3.1 cm/m2 LVIDs: 3.35 2.0-3.6 cm LVPWd: 0.82 0.7-1.1 cm Ao Root: 3.20 2.1-3.5 cm LA Diam: 3.30 2.7-3.8/3.0-4.0 cm LAIDs Index: 1.79 1.5-2.3 cm/m2 LV Mass: 157.12 67-162/88-224 g LV Mass Index: 85.39 43-95/49-115 g/m2 LVOT Diam: 2.20 3.0+(-)1.3 cm 2D Systolic Function EF 4C: 44.50 >55% EF 2C: 56.50 >55% EF BiP: 51.00 >55% Mitral Valve MV Pk E: 0.59 MV PK A: 0.91 MV Decel Time: 83.00 E/A: 0.60 E'Lateral: 8.05 E'Medial: 6.96 E/E' Med: 8.40 E/E' Lat: 7.30 PHT: 24.00 MVA PHT: 9.17 Decel [place]: 7.05 Aortic Valve AoV Pk Juan: 1.13 AoV Mn Juan: 0.85 AoV VTI: 0.19 AoV Pk Grad: 5.00 Aov Mn Grad: 3.00 MAIK Cont.VTI: 2.42 LVOT LVOT Pk Juan: 0.73 LVOT Mn Juan: 0.51 LVOT VTI: 0.12 LVOT Pk Grad: 2.00 LVOT Mn Grad: 1.00 LVOT Diam: 2.20 LVOT Area: 3.80 Diastolic Function MV Pk E: 0.59 MV Pk A: 0.91 E/A: 0.60 E'Medial: 6.96 E/E' Med: 8.40 E' Laterial: 8.05 E/E' Lat: 7.30 Right Ventricle TAPSE (mm): 21.60 TVS' Juan: 9.68 Tricuspid Valve TR Pk Juan: 1.83 TR Pk Grad: 13.00 RA Press: 3.00 RVSP: 16.00 Great Vessels Aorta Ao Root-2D: 3.20 2.0-3.7 cm Ao Asc: 3.30 2.1-3.4 cm Ao Arch: 2.20 Updated in Other Vendor System with Status of Final Cuauhtemoc Mcfarland MD electronically signed on 06/03/2024 11:09:03 AM with status of Final
== END ==
LOC: HO.CARD 12:46
PROVIDERS: PCP Nurse Practitioner Family; Visit Provider Internal Medicine Cardiovascular Disease
DX: R00.0 Tachycardia, unspecified (principal); Z86.73 Personal history of transient ischemic attack (TIA), and cerebral infarction without residual deficits
CPT/HCPCS: 93242; 93306; Q9957

== ENCOUNTER → 2024-06-02 12:53 | Outpatient (BNV) | payer MEDICARE, SELFPAY | PROVIDERS: PCP Nurse Practitioner Family; Visit Provider Internal Medicine | DX: Q21.10 Atrial septal defect, unspecified (principal); Z86.73 Personal history of transient ischemic attack (TIA), and cerebral infarction without residual deficits | CPT/HCPCS: 93303; 93320; 93325 ==